=== PATIENT | male | born 1940 | race Caucasian/White ===

== ENCOUNTER 2016-10-15 09:20 | Day surgery (SDC) | payer MEDICARE ==
[2016-10-14 09:35] VITALS: BMI 26.9
[~2016-10-15 09:20] MED LIST: LACTATED RINGERS 1,000 ML IV SCH
[2016-10-15 09:56] VITALS: TEMP 97.6
[2016-10-15 09:57] LABS: Glucose,Whole Blood 96 mg/dL (75-99)
[2016-10-15] MEDS ORDERED: PROPOFOL 10 MG/ML 20 ML VIAL IV ONE (10:41)
--- NOTE | 2016-10-15 11:23 | P.PCN ---
Date of Procedure: 10/15/16 Preoperative Diagnosis: Postoperative Diagnosis: Procedure(s) Performed: BRIEF HISTORY: Patient is a 76-year-old pleasant white male, scheduled for an elective colonoscopy as a part of prior history of colon polyps. His last colonoscopy was in 2010. PROCEDURE PERFORMED: Colonoscopy with snare polypectomy. PREOPERATIVE DIAGNOSIS: History of colon polyps. IV sedation per Anesthesia. PROCEDURE: After informed consent was obtained, the patient, was brought into the endoscopy unit. IV sedation was administered by Anesthesia under continuous monitoring. Digital rectal examination was normal. Initially the Olympus CF- 160 flexible video colonoscope was then inserted in the rectum, gradually advanced into the cecum without any difficulty. Careful examination was performed as the scope was gradually being withdrawn. Ileocecal valve and the appendiceal orifice were visualized and appeared normal. Prep was excellent. In the base of the cecum there was a 1 cm flat polyp removed by snare polypectomy. In the transverse colon there was another 1 cm broad-based polyp removed by snare polypectomy. The rest of the mucosa of the cecum, ascending colon, transverse colon, descending colon, sigmoid colon, and rectum appeared normal. Scattered sigmoid diverticulosis seen. Retroflexion was performed in the rectum and no lesions were seen. The patient tolerated the procedure well. IMPRESSION: 1 m flat cecal polyp status post snare polypectomy. 1 m broad-based transverse colon polyp status post snare polypectomy. Scattered sigmoid diverticulosis. RECOMMENDATIONS: Findings of this examination were discussed with the patient as well as his family. He was advised to follow with the biopsy results. If the biopsy shows a tubular adenoma he can have a repeat colonoscopy in 3-5 years.. Implants: Indications for Procedure: Operative Findings: Description of Procedure:
[2016-10-15 11:30] VITALS: BP 120/68; PULSE 55; RESP 18
== END 2016-10-15 11:44 | disposition home or self-care (01) ==
LOC: ORWHC2ENDO 09:20
PROVIDERS: ATTEND Internal Medicine Gastroenterology
DX: Z12.11 Encounter for screening for malignant neoplasm of colon (principal); D12.0 Benign neoplasm of cecum; D12.2 Benign neoplasm of ascending colon; K57.30 Diverticulosis of large intestine without perforation or abscess without bleeding; Z86.010 Personal history of colon polyps; G47.33 Obstructive sleep apnea (adult) (pediatric); Z79.82 Long term (current) use of aspirin; Z79.52 Long term (current) use of systemic steroids; Z79.899 Other long term (current) drug therapy
CPT/HCPCS: 88305; 45385; J2704

== ENCOUNTER → 2017-01-20 | Outpatient (CLI) | payer MEDICARE ==
--- NOTE | 2017-01-20 12:45 | MR ---
EXAMINATION TYPE: MR shoulder LT wo con DATE OF EXAM: 01/20/2017 COMPARISON: NONE HISTORY: Left shoulder pain TECHNIQUE: Multiplanar, multisequence imaging of the left shoulder is performed without contrast. FINDINGS: Exam limited by severe motion artifact. Rotator Cuff: There is an 8 mm through thickness tear involving the distal margin anterior fibers sup raspinatus tendon. There is edema at the musculotendinous junction of the infraspinatus tendon and th ickening of the conjoined portion of the tendon and a large through thickness tear measuring approxim ately 11 mm near the insertion. Suspected partial through thickness tear insertion of the subscapular is tendon. Acromioclavicular Joint: Hypertrophic change of the AC joint results in impingement of the rotator cu ff. Glenohumeral Joint: There is narrowing of the glenohumeral joint. Significant narrowing with near com plete loss of joint space. There is partial subluxation of the humeral head. Small amount of fluid in the joint space. Labrum: Degenerative labral tears are noted secondary to severe arthropathy. Biceps Tendon: Increased fluid surrounding the biceps tendon suggesting bicipital tendinosis biceps a nchor and intracapsular portion of the tendon intact. Bone marrow signal: Cystic changes and edema involving the head of the humerus likely post arthritic and reactive. IMPRESSION: 1. Severe arthropathy of the glenohumeral joint with subluxation posteriorly of the humeral head. Deg enerative labral tears are noted and there is near complete loss of joint space. 2. Partial through thickness tears involving the infraspinatus and supraspinatus tendons as discussed above. Additionally, edematous change at the musculotendinous junction of the infraspinatus tendon a nd muscle noted as discussed above. 3. Partial tear insertion subscapularis tendon. 4. Impingement secondary to AC joint arthropathy.
== END | disposition home or self-care (01) ==
LOC: RADMRIMAIN 11:31
PROVIDERS: ATTEND Orthopaedic Surgery
DX: M75.112 Incomplete rotator cuff tear or rupture of left shoulder, not specified as traumatic (principal); M12.812 Other specific arthropathies, not elsewhere classified, left shoulder; S43.002A Unspecified subluxation of left shoulder joint, initial encounter

== ENCOUNTER → 2017-03-02 | Outpatient (CLI) | payer MEDICARE ==
[2017-03-02 10:15] LABS: INR 1.2 (<1.2); Prothrombin Time 12.3 sec (9.0-12.0)
--- NOTE | 2017-03-02 10:29 | XR ---
EXAMINATION TYPE: XR chest 2V DATE OF EXAM: 03/02/2017 COMPARISON: NONE HISTORY: Preoperative clearance. TECHNIQUE: Frontal and lateral views of the chest are obtained. FINDINGS: There is no focal air space opacity, pleural effusion, or pneumothorax seen. The cardiac silhouette size is within normal limits. The osseous structures are intact. Minimal degenerative ch anges of the thoracic spine are noted. Prior rotator cuff surgery on the right with anchors and subch ondral cystic change are seen. IMPRESSION: No acute cardiopulmonary process.
[2017-03-02 10:34] LABS: ALT 25 U/L (21-72); AST 25 U/L (17-59); Alkaline Phosphatase 56 U/L (38-126); Anion Gap 11 mmol/L; Blood Urea Nitrogen 18 mg/dL (9-20); Carbon Dioxide 22 mmol/L (22-30); Chloride 108 mmol/L (98-107); Glucose 104 mg/dL (74-99); Non-African American GFR(MDRD) >60 (>60 ml/min/1.73 sqM); Potassium 4.7 mmol/L (3.5-5.1); Sodium 141 mmol/L (137-145); Total Bilirubin 1.6 mg/dL (0.2-1.3); Total Protein 6.9 g/dL (6.3-8.2)
[2017-03-02 10:47] LABS: Basophils % (A) 1 %; CHCM 33.5; Eosinophils # (A) 0.3 k/uL (0-0.7); Eosinophils % (A) 4 %; HCT 49.9 % (39.0-53.0); HDW 2.51; Luc # (Auto) 0.21; Luc % (Auto) 3; Lymphocytes # (A) 1.8 k/uL (1.0-4.8); Lymphocytes % (A) 25 %; MCH 30.9 pg (25.0-35.0); MCHC 32.1 g/dL (31.0-37.0); MCV 96.1 fL (80.0-100.0); Mean Platelet Volume 7.1; Monocytes # (A) 0.4 k/uL (0-1.0); Monocytes % (A) 6 %; Neutrophils # (A) 4.3 k/uL (1.3-7.7); Neutrophils % (A) 61 %; RBC 5.19 m/uL (4.30-5.90); RDW 12.7 % (11.5-15.5); WBC 7.1 k/uL (3.8-10.6); WBC (Perox) 7.09
== END | disposition home or self-care (01) ==
LOC: LABWHC1 09:28
PROVIDERS: ATTEND Internal Medicine Geriatric Medicine
DX: Z01.818 Encounter for other preprocedural examination (principal); Z01.812 Encounter for preprocedural laboratory examination
CPT/HCPCS: 36415; 71020; 80053; 85025; 85610; 87070

== ENCOUNTER 2017-03-29 06:32 | Inpatient (IN) | payer MEDICARE ==
[2017-03-28 09:03] VITALS: BMI 27.1
--- NOTE | 2017-03-28 10:19 | HP ---
HISTORY AND PHYSICAL CHIEF COMPLAINT: Left shoulder pain. HISTORY OF PRESENT ILLNESS: The patient is a 76-year-old retired left-hand dominant gentleman who presents with left shoulder pain for the past several years. It has worsened recently. He is having pain with overhead use and at night. He has tried medications and injections with only partial temporary relief. He notes the pain does limit his normal function and activities. PAST MEDICAL HISTORY: Significant for reflux disease, sleep apnea, prostatic hypertrophy, hypothyroidism. PAST SURGICAL HISTORY: Significant for previous knee and shoulder surgery. CURRENT MEDICATIONS: Aspirin and terazosin. ALLERGY: He notes sensitivity to CODEINE, however, no rosita drug allergies. FAMILY HISTORY: Significant for cancer. SOCIAL HISTORY: Negative for current tobacco or alcohol use. REVIEW OF SYSTEMS: Sixteen point review of systems otherwise reviewed and is noncontributory. PHYSICAL EXAMINATION: On examination, the patient is approximately 5 feet 9 inches, 187 pounds of mesomorphic habitus. HEENT exam is nonfocal. Neck is supple. He has active range of motion of the left shoulder. Forward elevation 135 degrees, external rotation with arm at side 50 degrees, internal rotation to T12. He is tender about the anterior glenohumeral joint. Motor strength is 5/5 for external rotation with arm at side and 5 minus/5 for abduction. Impingement, Neer , and Speed tests are positive. His distal neurovascular exam otherwise appears intact in the left upper extremity. X-rays to include AP and axillary lateral views of the left shoulder obtained in the office show severe glenohumeral joint osteoarthrosis. Previous MRI report revealed a small rotator cuff tear. IMPRESSION: Left severe glenohumeral joint osteoarthrosis. RECOMMENDATIONS: I talked to the patient and his at length regarding his treatment options. At this point, he is significantly limited because of pain related to his osteoarthrosis despite conservative measures. After thorough discussion, he opts to proceed with surgery. We will plan to proceed with left total shoulder arthroplasty versus a reverse total shoulder arthroplasty depending on his rotator cuff integrity. We will likely institute DVT prophylaxis postoperatively. The patient underwent preoperative medical evaluation by Dr. Talbot. KWAN / ZAHIRA: [id number] /
[~2017-03-29 06:32] MED LIST changes: +ACETAMINOPHEN TAB 500 MG TAB PO ONE; -LACTATED RINGERS 1,000 ML IV SCH; +MELOXICAM 7.5 MG TAB PO ONE; +MIDAZOLAM 2 MG/2 ML VIAL IV PRN; +TRANEXAMIC ACID 1,000 MG in SODIUM CHLORIDE 0.9% 100 ML IVPB ONE; +ceFAZolin IN SWFI 2 GM/20 ML SYRINGE IVP ONE; +fentaNYL (PF) 50 MCG/ML 2 ML AMP IV PRN
[2017-03-29] MEDS ORDERED: ONDANSETRON 4 MG/2 ML VIAL IVP ONE (07:15)
[2017-03-29] MEDS: LACTATED RINGERS 1,000 ML IV SCH ×2 (07:15→16:58)
[2017-03-29] MEDS ORDERED: LIDOCAINE 1% 20 ML VIAL (10MG/ML) FOR IV START INTRADERMA ONE (07:15)
[2017-03-29] MEDS ORDERED: DEXAMETHASONE SOD PHOSPHATE 10 MG/ML 1 ML VIAL IV ONE (07:15)
[2017-03-29] MEDS ORDERED: MIDAZOLAM 2 MG/2 ML VIAL IV ONE ×2 (07:30→07:54)
[2017-03-29] MEDS ORDERED: fentaNYL (PF) 50 MCG/ML 2 ML AMP IV ONE (07:30)
[2017-03-29 07:50] VITALS: RESP 16
[2017-03-29] MEDS ORDERED: SUCCINYLCHOLINE CHLORIDE 100 MG/5 ML SYR IV ONE (07:55)
[2017-03-29] MEDS ORDERED: fentaNYL (PF) 50 MCG/ML 2 ML AMP ONE (07:55)
[2017-03-29] MEDS ORDERED: LIDOCAINE 1% INJ 10MG/ML (20 ML MDV) ONE (07:55)
[2017-03-29] MEDS ORDERED: PROPOFOL 10 MG/ML 20 ML VIAL IV ONE (07:55)
[2017-03-29] MEDS ORDERED: PHENYLEPHRINE-0.9% NACL SYG 1 MG/10 ML SYRINGE ONE (07:55)
[2017-03-29] MEDS ORDERED: SODIUM CHLORIDE 0.9% 100 ML BAG ONE (07:55)
[2017-03-29] MEDS ORDERED: TRANEXAMIC ACID 1,000 MG/10 ML VIAL ONE (07:55)
[2017-03-29] MEDS ORDERED: SODIUM CHLORIDE 0.9% 50 ML with ceFAZolin 2 GM IV ONE ×2 (07:58)
--- NOTE | 2017-03-29 08:34 | P.ONQ ---
Anesthesiology Proc Note - PNB - Peripheral Nerve Block Performed Left Interscalene Single Time Out Performed: Yes Indication: Acute Post-Operative Pain, Analgesia Specifically requested for management of pain by : Riki Wright Sedation Type: Sedate with meaningful contact maintained Preparation: Sterile Prep Position: Supine Catheter: None Needle Types: Other (see comment) (Pajunk) Needle Size: 50mm (2") Needle Gauge: 21 Technique: Ultrasound Injectate: Other (see comment) (12.5cc 0.5% ropivicaine + 12.5cc 2% lidocaine) Adjunct: Epinephrine (see comment for dilution ratio) (1:200,000) Blood Aspirated: No Pain Paresthesia on Injection Noted: No Resistance on Injection: Normal Events: Uneventful and Well Tolerated
[2017-03-29] MEDS ORDERED: LACTATED RINGERS 1,000 ML IV ONE (10:06)
[2017-03-29] MEDS ORDERED: SENNOSIDES-DOCUSATE SODIUM 1 EACH TAB PO PRN (10:17)
[2017-03-29] MEDS ORDERED: ONDANSETRON 4 MG/2 ML VIAL IVP PRN (10:17)
[2017-03-29] MEDS ORDERED: HYDROcodone/APAP 5-325MG 1 EACH TAB PO PRN (10:17)
[2017-03-29] MEDS ORDERED: HYDROmorphone 1 MG/ML 1 ML SYRINGE IVP PRN ×2 (10:17)
--- NOTE | 2017-03-29 10:32 | P.OP ---
Date of Procedure: 03/29/17 Preoperative Diagnosis: Left severe glenohumeral joint osteoarthrosis-primary Postoperative Diagnosis: Same Procedure(s) Performed: Left total shoulder arthroplasty Implants: [employer] size 12 press-fit humeral stem, 52 x 21 mm eccentric humeral head, 48 mm pegged cemented glenoid component. Anesthesia: maris HICKS Surgeon: Riki Wright Afternoon Nanny #1: Carlos Yu Estimated Blood Loss (ml): 250 Pathology: other (Humeral head) Condition: stable Disposition: PACU Indications for Procedure: The patient's a 76-year-old gentleman who presents with progressive left shoulder pain secondary to osteoarthrosis despite conservative measures. A discussion of the risks and benefits of operative intervention versus continued conservative measures was made with the patient. He opted to proceed with surgery. Operative risks to include infection, neurovascular injury, component loosening, dislocation, and possible need for subsequent procedures was discussed. Informed consent was obtained. Operative Findings: As below Description of Procedure: The patient was brought to the operating room and after induction of general anesthesia was placed in the beachchair position. The bony prominences were appropriately padded. The left upper extremity was prepped and draped in normal fashion. The bony outlines the acromion, distal clavicle, and coracoid process were outlined with a skin marker. A deltopectoral incision was made just lateral to the coracoid process extending approximately 12 cm. The skin was incised sharply. Subcu tissues were divided bluntly. Electrocautery was used for hemostasis. The deltopectoral interval was identified and the cephalic vein gently retracted laterally with the deltoid. Blunt dissection was performed. Subdeltoid adhesions were bluntly dissected. The upper one third of the pectoralis was released with electrocautery to help facilitate exposure. The clavipectoral fascia was opened and the conjoined tendon gently retracted medially. A portion of the upper coracoacromial ligament was transected with electrocautery. The biceps was identified in the bicipital groove on removed. The rotator interval was opened. The rotator cuff appeared to be intact. The biceps was tenotomized and lateral retract distally. A lesser tuberosity osteotomy was performed with a sagittal saw and tagged with a suture. The capsule was released directly off the humeral neck. The humeral head was then fully exposed. The shoulder was just gently dislocated. A starting hole was made in line with the humeral shaft just medial to the greater tuberosity. Sequential canal reaming is performed by hand up to size 12. There was good distal fit. The cutting guide was then placed planning on 30 of retroversion. I planned on the cut exiting laterally at the rotator insertion. The cutting block was pinned in place the humeral head cut was made. The head was then removed and sized at 52 mm x 21 mm. Attention was then paid towards preparing the glenoid. A posterior retractor is placed along with a anterior glenoid retractor. The labrum was released from the 6:00 to 12 o'clock position anteriorly. The biceps was released from the superior labrum. The posterior labrum was also elevated. I had good glenoid exposure at this point. The glenoid sized most appropriate 48 mm. The alignment guide was placed and the threaded pin placed into the center of the glenoid from the anterior to posterior and superior to inferior aspect. The glenoid was then reamed down to bleeding bony surface. The central peg hole was drilled. The peripheral peg holes were drilled with the appropriate guide. There was bony containment of all peg holes. The trial 48 mm peg glenoid was placed and was fully seated. There is good anterior to posterior and superior to inferior fit. The trial component was then removed. The peripheral peg holes were then cemented and pressurized. Excess cement was removed. I did bone graft the central peg portion of the glenoid component. The glenoid was then inserted and was fully seated. After the cement had sufficiently hardened, attention was then paid towards preparing the proximal humerus. The appropriate broach was inserted in 30 of retroversion and was fully seated. There was good rotational stability. The trial 52 x 21 mm eccentric head was placed and appropriately positioned for humeral height. The shoulder was gently reduced. It was taken through range of motion. I was stable in flexion and extension with internal and external rotation. I felt there was adequate soft tissue tension. The shoulder was gently dislocated. The trial components were then removed. #2 Ethibond was then placed lateral to the bicipital groove for reattachment of the lesser tuberosity. The humeral stem was inserted again at 30 of retroversion and was fully seated. Again there was good rotational stability. The eccentric head was placed and appropriately positioned for humeral height. It was gently impacted. The shoulder was again gently reduced. Again it was felt to be stable in flexion and extension with internal and external rotation. Pulsatile lavage was utilized. The rotator interval was closed with #2 Ethibond suture. The lesser tuberosity was reattached with the previously placed #2 Ethibond suture. The deltopectoral interval was closed with interrupted 2-0 Vicryl sutures. Subcutaneous tissues reapproximated interrupted 2-0 Vicryl sutures. The skin was reapproximated with 3-0 subcuticular Prolene suture. Steri-Strips were applied. A sterile dressing was applied in addition to a sling. The patient was awoken from general anesthesia and transferred to recovery room in good condition. Blood loss was estimated 250 mL. No complications were incurred. Sponge and needle counts were correct at the end the case.
--- NOTE | 2017-03-29 10:49 | XR ---
EXAMINATION TYPE: XR shoulder limited LT DATE OF EXAM: 03/29/2017 CLINICAL HISTORY: Left shoulder replacement surgery TECHNIQUE: Single frontal view of left shoulder is obtained. COMPARISON: MRI left shoulder January 20, 2017.. FINDINGS: Metallic hardware from left shoulder arthroplasty is felt satisfactory in position. There i s evidence of recent surgery with adjacent subcutaneous gas and surgical staple overlying central gle noid. IMPRESSION: Metallic hardware from left shoulder surgery is satisfactory in position.
--- NOTE | 2017-03-29 14:17 | P.CONS ---
History of Present Illness - Reason for Consult Consult date: 03/29/17 Medical management - History of Present Illness This is a 76-year-old male patient of Dr. Talbot with past medical history for generalized osteoarthritis, benign prostatic hypertrophy, skin cancer, hepatitis A many years ago, obstructive sleep apnea. Patient has been admitted to the hospital on the care of Dr. Wright status post left total shoulder arthroplasty done today. Patient states his pain is controlled. He does have Jones catheter in place. Patient has history of benign prostatic hypertrophy and did have problems with urinary retention when he had his last shoulder surgery. Hytrin will be resumed. Jones to be removed in the morning. Patient denies any shortness of breath, cough, nausea or vomiting. Blood pressures currently stable. Review of Systems All systems: negative Constitutional: Denies chills, Denies fever Eyes: denies blurred vision, denies pain Ears, nose, mouth and throat: Denies headache, Denies sore throat Cardiovascular: Denies chest pain, Denies decreased exercise tolerance, Denies dyspnea on exertion, Denies edema, Denies leg edema, Denies lightheadedness, Denies shortness of breath, Denies syncope Respiratory: Denies cough, Denies cough with sputum, Denies dyspnea, Denies excessive sputum, Denies hemoptysis, Denies wheezing Gastrointestinal: Denies abdominal pain, Denies diarrhea, Denies nausea, Denies vomiting Genitourinary: Denies dysuria Musculoskeletal: Denies myalgias Integumentary: Denies pruritus, Denies rash Neurological: Denies numbness, Denies weakness Psychiatric: Denies anxiety, Denies depression Endocrine: Denies fatigue, Denies weight change Past Medical History Past Medical History: Cancer, Liver Disease, Osteoarthritis (OA), Prostate Disorder, Sleep Apnea/CPAP/BIPAP Additional Past Medical History / Comment(s): enlarged prostate, hx. skin cancer , hx. hepatitis A in college 56 yrs. ago, uses a bite splint for sleep apnea, History of Any Multi-Drug Resistant Organisms: None Reported Past Surgical History: Hernia Repair, Orthopedic Surgery Additional Past Surgical History / Comment(s): rotator cuff repair right, arthroscopies both knees,TLS 03/29/17, left shoulder total arthroplasty Past Anesthesia/Blood Transfusion Reactions: Previous Problems w/ Anesthesia Additional Past Anesthesia/Blood Transfusion Reaction / Comm: "hard to wake up" Past Psychological History: No Psychological Hx Reported Smoking Status: Never smoker Past Alcohol Use History: Occasional Additional Past Alcohol Use History / Comment(s): Patient lives at home with his . He states he is a lifelong nonsmoker. No illicit drug use. He does drink a glass of wine occasionally area last intake was 3 days ago. Past Drug Use History: None Reported - Past Family History Mother Family Medical History: No Reported History Additional Family Medical History / Comment(s): Mother had no major medical problems. Father Additional Family Medical History / Comment(s): Father had no major medical problems. Daughter(s) Additional Family Medical History / Comment(s): Patient has 2 children with no major medical problems. Medications and Allergies Home Medications Medication Instructions Recorded Confirmed Type Aspirin [Adult Low Dose Aspirin EC] 81 mg PO DAILY 10/14/16 03/29/17 History Cinnamon Bark [Cinnamon] 500 mg PO DAILY 10/14/16 03/29/17 History Multivitamin [Multiple Vitamins] 1 tab PO DAILY 10/14/16 03/29/17 History Glucosam/Harish-Msm1/C/Abhijeet/Bosw 1 tab PO DAILY 03/28/17 03/29/17 History [Glucosamine-Chondroitin Tablet] Sildenafil Citrate [Sildenafil] 20 mg PO DIRECTED PRN 03/28/17 03/29/17 History Terazosin [Hytrin] 5 mg PO HS 03/28/17 03/29/17 History Allergies Allergy/AdvReac Type Severity Reaction Status Date / Time codeine AdvReac Rash/Hives Verified 03/29/17 12:27 Physical Exam Vitals: Vital Signs Temp Pulse Pulse Resp BP BP Pulse Ox 03/29/17 11:00 88 16 114/53 96 03/29/17 10:45 87 16 120/56 95 03/29/17 10:30 89 16 123/61 95 03/29/17 10:18 98.4 F 87 16 112/59 96 03/29/17 07:45 74 16 108/54 94 L 03/29/17 07:25 98.0 F 72 16 122/67 97 Intake and Output 03/28/17 03/29/17 03/29/17 22:59 06:59 14:59 Intake Total 1320 Output Total 450 Balance 870 Intake: IV 1320 Output: Urine 200 Estimated Blood Loss 250 Gen: This is a 76-year-old male. He is seen sitting up in bed appears to be comfortable and in no acute distress. HEENT: Head is atraumatic, normocephalic. Pupils equal, round. Sclerae is anicteric. NECK: Supple. No JVD. No lymphadenopathy. No thyromegaly. LUNGS: Clear to auscultation. No wheezes or rhonchi. No intercostal retractions. HEART: Regular rate and rhythm. No murmur. ABDOMEN: Soft. Bowel sounds are present. No masses. No tenderness. EXTREMITIES: No pedal edema. No calf tenderness. Dorsalis pedis +2 bilaterally. To the left shoulder, patient has a large dressing and sling in place. NEUROLOGICAL: Patient is awake, alert and oriented x3. Cranial nerves 2 through 12 are grossly intact. Assessment and Plan Plan: 1. Osteoarthritis left shoulder status post arthroplasty. Continue pain management, local wound care, PT, OT per orthopedics. Incentive spirometry to reduce incidence of atelectasis and hospital-acquired pneumonia. Jones catheter to be removed in the morning. 2. Benign prostatic hypertrophy with history of urinary retention. Patient will be resumed on Hytrin. Once Jones catheter is removed, monitor for urinary retention. Patient may require straight cath. 3. Obstructive sleep apnea, stable. 4. History of skin cancer, stable. Discharge plan: Return home Impression and plan of care have been directed as dictated by the signing physician. Lauryn Pineda nurse practitioner acting as scribe for signing physician.
[2017-03-29] MEDS: ceFAZolin IN SWFI 2 GM/20 ML SYRINGE IVP SCH (17:06)
[2017-03-29] MEDS: HYDROcodone/APAP 5-325MG 1 EACH TAB PO PRN ×2 (17:06→22:40)
[2017-03-29] MEDS ORDERED: DOXAZOSIN 4 MG TAB PO SCH (21:00)
[2017-03-29 22:20] VITALS: BP 112/56; PULSE 76; TEMP 98
[2017-03-30] MEDS: ceFAZolin IN SWFI 2 GM/20 ML SYRINGE IVP SCH (04:59)
[2017-03-30] MEDS: LACTATED RINGERS 1,000 ML IV SCH (05:00)
[2017-03-30 06:37] LABS: Basophils % (A) 0 %; CH 31.7; CHCM 33.2; Eosinophils # (A) 0.2 k/uL (0-0.7); Eosinophils % (A) 1 %; HCT 40.8 % (39.0-53.0); HDW 2.47; HGB 13.3 gm/dL (13.0-17.5); Luc # (Auto) 0.22; Luc % (Auto) 2; Lymphocytes # (A) 1.6 k/uL (1.0-4.8); Lymphocytes % (A) 12 %; MCH 31.2 pg (25.0-35.0); MCHC 32.6 g/dL (31.0-37.0); MCV 95.9 fL (80.0-100.0); Mean Platelet Volume 7.8; Monocytes # (A) 0.8 k/uL (0-1.0); Monocytes % (A) 6 %; Neutrophils # (A) 10.6 k/uL (1.3-7.7); Neutrophils % (A) 80 %; RBC 4.25 m/uL (4.30-5.90); RDW 12.9 % (11.5-15.5); WBC 13.3 k/uL (3.8-10.6); WBC (Perox) 14.05
[2017-03-30] MEDS: HYDROcodone/APAP 5-325MG 1 EACH TAB PO PRN ×2 (08:04→14:14)
[2017-03-30] MEDS ORDERED: ASPIRIN 81 MG PO SCH (09:00)
[2017-03-30] MEDS ORDERED: ASPIRIN 325 MG TAB PO SCH (09:00)
[2017-03-30] MEDS ORDERED: ENOXAPARIN 30 MG/0.3 ML SYRINGE SQ SCH (09:00)
--- NOTE | 2017-03-30 12:40 | P.PN ---
Subjective Progress Note Date: 03/30/17 Principal diagnosis: Status post left total shoulder arthroplasty Patient seen today resting in his hospital bed, he appears comfortable. His pain is well-controlled. He denies any chest pain, lightheadedness, shortness of breath, nausea or vomiting. Objective - Vital Signs Vital signs: Vital Signs Temp 98.0 F 03/29/17 20:00 Pulse 76 03/29/17 20:00 Resp 16 03/29/17 20:00 BP 112/56 03/29/17 20:00 Pulse Ox 94 L 03/29/17 20:00 Intake & Output 03/29/17 03/30/17 03/30/17 18:59 06:59 18:59 Intake Total 1740 180 480 Output Total 450 Balance 1290 180 480 Intake: IV 1560 180 Lactated Ringers 1,000 ml 240 180 @ 60 mls/hr IV .[id number] TOVA Rx#:[id number] Oral 180 480 Output: Urine 200 Estimated Blood Loss 250 Other: Voiding Method Indwelling Catheter Indwelling Catheter - Exam Left upper extremity: The incision is clean, dry, and intact. There is some soft tissue swelling and ecchymosis noted on the medial aspect of the arm. She is able to wiggle all the fingers, flexion and extension and the wrist are intact. Sensory exam to light touch the extremity is intact. His radial pulses 2+. - Labs CBC & Chem 7: 03/30/17 06:02 Labs: Abnormal Lab Results - Last 24 Hours (Table) 03/30/17 Range/Units 06:02 WBC 13.3 H (3.8-10.6) k/uL RBC 4.25 L (4.30-5.90) m/uL Neutrophils # 10.6 H (1.3-7.7) k/uL Assessment and Plan Plan: Assessment: 1. Postop day #1 status post left total shoulder arthroplasty Plan: 1. Pain control, we'll discharge home on oral medications 2. GI and DVT prophylaxis, we'll discharge home on aspirin 325 mg twice a day 3. Pendular exercises daily 4. Wound care instructions were discussed with patient 5. Medical recommendations 6. Discharge planning: Patient will be discharged home today Time with Patient: Less than 30
--- NOTE | 2017-03-30 12:43 | P.DS ---
Providers Date of admission: 03/29/17 06:32 Expected date of discharge: 03/30/17 Attending physician: Riki Wright Primary care physician: [facility] Course: Date of admission: 03/29/2017 Date of discharge: 03/30/2017 Admission diagnosis: Status post left total shoulder arthroplasty Discharge diagnosis: Same Attending physician: Dr. Wright Surgical procedures: Left total shoulder arthroplasty Brief history: Patient is a 76-year-old male with a history of progressive primary left shoulder osteoarthritis. At this point patient has failed conservative treatment measures and has opted to proceed with a elective left total shoulder arthroplasty. Hospital course: Details of patient's surgery can be found in operative report. Patient tolerated the procedure well and was subsequently transported to orthopedic floor. Patient's orthopeidc and medical care was provided daily. Patient had daily laboratory tests performed for evaluation of overall blood counts. Patient had daily physical therapy to include strengthening range of motion as well as education with walker ambulation. Patient was treated with aspirin for their postoperative DVT prophylaxis during their inpatient stay. Patient was noted to have a relatively uneventful postoperative course. Patient reported satisfactory pain control with oral pain medications by postoperative day 0. Patient showed satisfactory progress with physical therapy. Patient moved steadily through the program and had no difficulty meeting the goals by postoperative day 1. Given patient's otherwise satisfactory course and having met physical therapy goals, plan is to discharge patient home on postoperative day 1. Discharge condition/disposition: Patient will be discharged home in stable condition. Discharge medications: Instructions are given on resumption of patient's normal daily medications per primary care recommendation, in addition patient will be prescribed Randolph 5 mg/325 mg, aspirin 325 mg. Discharge instructions: 1. Wound care and infection precautions, keep incision dry and covered while showering, no lotions, creams, moisturizers. No soaking, tubs, pools, hottubs. Do not scrub over the incision. 2. Utilize arm sling, pendulum exercises 2-3 times a day 3. Ice and elevate when necessary. Do not exceed 20 minutes per hour with ice pack. 4. Utilize compression sleeve until seen at first follow up appointment. 5. Visiting nursing care. 6. Pain meds and anticoagulants per prescription. 7. Pain medication has potential to cause constipation. Increase oral fluid and fiber intake. Contact primary care provider if you have not had a bowel movement within 48 hours after discharge 8. No anti-inflammatory medication until discussed at first post operative visit, this including Motrin, Aleve, Mobic, Diclofenac. 9. Follow up in office at 2 weeks postop with Tello Yu PA-C 10. Follow up with your primary care doctor 7-10 days after discharge. 11. Contact [facility] with any questions, . Procedures: Left total shoulder arthroplasty Patient Condition at Discharge: Good Plan - Discharge Summary Discharge Rx Participant: Yes New Discharge Prescriptions: New Aspirin 325 mg PO BID #60 tab Hydrocodone/Acetaminophen [Randolph 5-325] 1 - 2 each PO Q6HR PRN #40 tab PRN Reason: Pain No Action Multivitamin [Multiple Vitamins] 1 tab PO DAILY Cinnamon Bark [Cinnamon] 500 mg PO DAILY Terazosin [Hytrin] 5 mg PO HS Sildenafil Citrate [Sildenafil] 20 mg PO DIRECTED PRN PRN Reason: erectile dysfunction Glucosam/Harish-Msm1/C/Abhijeet/Bosw [Glucosamine-Chondroitin Tablet] 1 tab PO DAILY Discharge Medication List Cinnamon Bark [Cinnamon] 500 mg PO DAILY 10/14/16 [History] Multivitamin [Multiple Vitamins] 1 tab PO DAILY 10/14/16 [History] Glucosam/Harish-Msm1/C/Abhijeet/Bosw [Glucosamine-Chondroitin Tablet] 1 tab PO DAILY 03/28/17 [History] Sildenafil Citrate [Sildenafil] 20 mg PO DIRECTED PRN 03/28/17 [History] Terazosin [Hytrin] 5 mg PO HS 03/28/17 [History] Aspirin 325 mg PO BID #60 tab 03/30/17 [Rx] Hydrocodone/Acetaminophen [Randolph 5-325] 1 - 2 each PO Q6HR PRN #40 tab 03/30/17 [Rx] Follow up Appointment(s)/Referral(s): Carlos Yu PAC [PHYSICIAN SENIOR CLINICAL DATA ANALYST] - 2 Weeks Activity/Diet/Wound Care/Special Instructions: Orthopedic Discharge Instructions: 1. Wound care and infection precautions, keep incision dry and covered while showering, no lotions, creams, moisturizers. No soaking, pools, hot tubs. Do not scrub over incision. 2. Utilize arm sling, pendulum exercises 2-3 times a day 3. Ice and elevate when necessary. Do not exceed 20 minutes per hour with ice pack. 4. Utilize compression sleeve until seen at first follow up appointment. 5. Visiting nursing care. 6. Pain meds and anticoagulants per prescription. 7 Pain medication has potential to cause constipation. Increase oral fluid and fiber intake. Contact primary care provider if you have not had a bowel movement within 48 hours after discharge. 8. No anti-inflammatory medication until discussed at first post operative visit, this including Motrin, Aleve, Mobic, Diclofenac. 9. Follow up in office at 2 weeks postop with Tello Yu PA-C 10. Follow up with your primary care doctor 7-10 days after discharge. 11. Contact [facility] with any questions, . Discharge Disposition: HOME WITH HOME HEALTH SERVICES
== END 2017-03-30 14:50 | disposition home or self-care (01) | DRG 483 ==
LOC: 2ORMAIN 06:32 → 3SUR 10:18
PROVIDERS: ADMIT Orthopaedic Surgery; ATTEND Orthopaedic Surgery
PROC: 0RRK0JZ Replacement of Left Shoulder Joint with Synthetic Substitute, Open Approach (ICD-10-PCS; principal; 2017-03-29 08:00)
DX: M19.012 Primary osteoarthritis, left shoulder (principal); E03.9 Hypothyroidism, unspecified; G47.33 Obstructive sleep apnea (adult) (pediatric); K21.9 Gastro-esophageal reflux disease without esophagitis; M81.0 Age-related osteoporosis without current pathological fracture; N40.0 Benign prostatic hyperplasia without lower urinary tract symptoms; E78.00 Pure hypercholesterolemia, unspecified; Z79.82 Long term (current) use of aspirin; Z79.899 Other long term (current) drug therapy; Z79.52 Long term (current) use of systemic steroids; Z85.828 Personal history of other malignant neoplasm of skin; Z88.5 Allergy status to narcotic agent; Z82.49 Family history of ischemic heart disease and other diseases of the circulatory system
CPT/HCPCS: 64415; 85025; 88300

== ENCOUNTER 2018-05-14 12:05 | Emergency (ER) | payer MEDICARE ==
[2018-05-14 12:17] VITALS: BP 155/73; PULSE 71; RESP 18
[2018-05-14] MEDS ORDERED: LORazepam 2 MG/ML INJ IV STA (12:58)
[2018-05-14] MEDS ORDERED: SODIUM CHLORIDE 0.9% 500 ML 500 ML IV STA (12:58)
[2018-05-14] MEDS ORDERED: ONDANSETRON 4 MG/2 ML VIAL IVP STA (12:58)
[2018-05-14] MEDS ORDERED: SODIUM CHLORIDE 0.9% 1,000 ML IV STA ×2 (12:58)
[2018-05-14] MEDS ORDERED: PANTOPRAZOLE 40 MG/10 ML VIAL IVP STA (12:58)
--- NOTE | 2018-05-14 13:30 | ED ---
Abdominal Pain HPI - General Chief Complaint: Abdominal Pain Stated Complaint: Stomach pain/vomiting Time Seen by Provider: 05/14/18 12:58 Source: patient, RN notes reviewed, old records reviewed Mode of arrival: ambulatory Limitations: no limitations - History of Present Illness Initial Comments: This is a 77-year-old male the ER for evasive persistent nausea vomiting and diarrhea. Abdominal pain and cramping. Symptoms began just prior to coming to the emergency room he woke up this morning. Symptoms of been persistent with increasing pain increasing vomiting. Patient denies fevers no prior history of similar complaint. States he has had stomach flu flu before but this does feel worse. No travel history no sick contacts. No trauma MD Complaint: abdominal pain -: hour(s) (6) Location: periumbilical, epigastric Radiation: none Migration to: no migration Severity: moderate Severity scale (1-10): 6 Consistency: constant Improves With: nothing Worsens With: vomiting, movement Associated Symptoms: nausea, vomiting - Related Data Home Medications Medication Instructions Recorded Confirmed Tamsulosin [Flomax] 0.4 mg PO BID 05/14/18 05/15/18 Triamterene/Hydrochlorothiazid 1 tab PO DAILY 05/14/18 05/15/18 [Triamterene-Hctz 37.5-25 mg Tb] Aspirin [Adult Low Dose Aspirin EC] 81 mg PO DAILY 05/15/18 05/15/18 Glucosam/Harish-Msm1/C/Abhijeet/Bosw 1 tab PO DAILY 05/15/18 05/15/18 [Glucosamine-Chondroitin Tablet] Multivitamins, Thera [Multivitamin 1 tab PO DAILY 05/15/18 05/15/18 (formulary)] Turmeric Root Extract [Turmeric] 500 mg PO DAILY 05/15/18 05/15/18 Previous Rx's Medication Instructions Recorded Ondansetron [Zofran] 4 mg PO Q8HR PRN #30 tab 05/14/18 HYDROcodone/APAP 5-325MG [[place] 1 tab PO Q6HR PRN #12 tab 05/15/18 5-325] Allergies Allergy/AdvReac Type Severity Reaction Status Date / Time codeine AdvReac Rash/Hives Verified 05/15/18 11:15 Review of Systems ROS Statement: Those systems with pertinent positive or pertinent negative responses have been documented in the HPI. ROS Other: All systems not noted in ROS Statement are negative. Past Medical History Past Medical History: Prostate Disorder, Sleep Apnea/CPAP/BIPAP Additional Past Medical History / Comment(s): enlarged prostate, hx. skin cancer , hx. hepatitis A in college 56 yrs. ago, uses a bite splint for sleep apnea, History of Any Multi-Drug Resistant Organisms: None Reported Past Surgical History: Hernia Repair, Joint Replacement, Orthopedic Surgery Additional Past Surgical History / Comment(s): rotator cuff repair right, arthroscopies both knees,TLS 03/29/17, left shoulder total arthroplasty Past Anesthesia/Blood Transfusion Reactions: Previous Problems w/ Anesthesia Additional Past Anesthesia/Blood Transfusion Reaction / Comment(s): "hard to wake up" Past Psychological History: No Psychological Hx Reported Smoking Status: Never smoker Past Alcohol Use History: Occasional Past Drug Use History: None Reported - Past Family History Mother Family Medical History: No Reported History Additional Family Medical History / Comment(s): Mother had no major medical problems. Father Additional Family Medical History / Comment(s): Father had no major medical problems. Daughter(s) Additional Family Medical History / Comment(s): Patient has 2 children with no major medical problems. General Exam Limitations: no limitations General appearance: alert, in no apparent distress, anxious Head exam: Present: atraumatic, normocephalic, normal inspection Eye exam: Present: normal appearance, PERRL, EOMI. Absent: scleral icterus, conjunctival injection, periorbital swelling ENT exam: Present: normal exam, mucous membranes moist Neck exam: Present: normal inspection. Absent: tenderness, meningismus, lymphadenopathy Respiratory exam: Present: normal lung sounds bilaterally. Absent: respiratory distress, wheezes, rales, rhonchi, stridor Cardiovascular Exam: Present: regular rate, normal rhythm, normal heart sounds. Absent: systolic murmur, diastolic murmur, rubs, gallop, clicks GI/Abdominal exam: Present: soft, normal bowel sounds. Absent: distended, tenderness, guarding, rebound, rigid Extremities exam: Present: normal inspection, full ROM, normal capillary refill. Absent: tenderness, pedal edema, joint swelling, calf tenderness Back exam: Present: normal inspection Neurological exam: Present: alert, oriented X3, CN II-XII intact Psychiatric exam: Present: normal affect, normal mood Skin exam: Present: warm, dry, intact, normal color. Absent: rash Course Vital Signs 05/14/18 05/14/18 12:12 16:10 Temperature 97.5 F L 97 F L Pulse Rate 71 Respiratory 18 Rate Blood Pressure 155/73 O2 Sat by Pulse 98 Oximetry - Reevaluation(s) Reevaluation #1: Medical record is reviewed and noncontributory Reevaluation #2: A she recheck at this time and his not having any pain no nausea or vomiting Medical Decision Making - Medical Decision Making 77 male the ER for evasive nausea vomiting abdominal pain and diarrhea. Patient is CT which is negative for acute disease, labwork is normal patient can be discharged home - Lab Data Result diagrams: 05/14/18 13:15 05/14/18 13:15 Lab Results 05/14/18 05/14/18 05/14/18 Range/Units 13:15 13:15 13:15 WBC 11.0 H (3.8-10.6) k/uL RBC 5.63 (4.30-5.90) m/uL Hgb 17.8 H (13.0-17.5) gm/dL Hct 51.5 (39.0-53.0) % MCV 91.4 (80.0-100.0) fL MCH 31.6 (25.0-35.0) pg MCHC 34.6 (31.0-37.0) g/dL RDW 13.0 (11.5-15.5) % Plt Count 201 (150-450) k/uL Neutrophils % 84 % Lymphocytes % 10 % Monocytes % 4 % Eosinophils % 1 % Basophils % 0 % Neutrophils # 9.2 H (1.3-7.7) k/uL Lymphocytes # 1.1 (1.0-4.8) k/uL Monocytes # 0.4 (0-1.0) k/uL Eosinophils # 0.1 (0-0.7) k/uL Basophils # 0.0 (0-0.2) k/uL Sodium 137 (137-145) mmol/L Potassium 4.3 (3.5-5.1) mmol/L Chloride 105 (98-107) mmol/L Carbon Dioxide 18 L (22-30) mmol/L Anion Gap 14 mmol/L BUN 26 H (9-20) mg/dL Creatinine 0.82 (0.66-1.25) mg/dL Est GFR (CKD-EPI)AfAm >90 (>60 ml/min/1.73 sqM) Est GFR (CKD-EPI)NonAf 86 (>60 ml/min/1.73 sqM) Glucose 162 H (74-99) mg/dL Lactic Ac Sepsis Rflx Plasma Lactic Acid Guillermo (0.7-2.0) mmol/L Calcium 9.8 (8.4-10.2) mg/dL Total Bilirubin 2.2 H (0.2-1.3) mg/dL AST 26 (17-59) U/L ALT 30 (21-72) U/L Alkaline Phosphatase 72 (38-126) U/L Total Creatine Kinase 64 (55-170) U/L CK-MB (CK-2) 1.9 (0.0-2.4) ng/mL CK-MB (CK-2) Rel Index 3.0 Troponin I <0.012 (0.000-0.034) ng/mL Total Protein 7.7 (6.3-8.2) g/dL Albumin 4.3 (3.5-5.0) g/dL Amylase 59 (30-110) U/L Lipase 30 (23-300) U/L Urine Color Urine Appearance (Clear) Urine pH (5.0-8.0) Ur Specific [place] (1.001-1.035) Urine Protein (Negative) Urine Glucose (UA) (Negative) Urine Ketones (Negative) Urine Blood (Negative) Urine Nitrite (Negative) Urine Bilirubin (Negative) Urine Urobilinogen (<2.0) mg/dL Ur Leukocyte Esterase (Negative) Urine RBC (0-5) /hpf Urine WBC (0-5) /hpf Urine Mucus (None) /hpf Blood Type Blood Type Recheck Antibody Screen Spec Expiration Date 05/14/18 05/14/18 05/14/18 Range/Units 13:15 13:15 13:15 WBC (3.8-10.6) k/uL RBC (4.30-5.90) m/uL Hgb (13.0-17.5) gm/dL Hct (39.0-53.0) % MCV (80.0-100.0) fL MCH (25.0-35.0) pg MCHC (31.0-37.0) g/dL RDW (11.5-15.5) % Plt Count (150-450) k/uL Neutrophils % % Lymphocytes % % Monocytes % % Eosinophils % % Basophils % % Neutrophils # (1.3-7.7) k/uL Lymphocytes # (1.0-4.8) k/uL Monocytes # (0-1.0) k/uL Eosinophils # (0-0.7) k/uL Basophils # (0-0.2) k/uL Sodium (137-145) mmol/L Potassium (3.5-5.1) mmol/L Chloride (98-107) mmol/L Carbon Dioxide (22-30) mmol/L Anion Gap mmol/L BUN (9-20) mg/dL Creatinine (0.66-1.25) mg/dL Est GFR (CKD-EPI)AfAm (>60 ml/min/1.73 sqM) Est GFR (CKD-EPI)NonAf (>60 ml/min/1.73 sqM) Glucose (74-99) mg/dL Lactic Ac Sepsis Rflx Plasma Lactic Acid Guillermo 2.7 H* (0.7-2.0) mmol/L Calcium (8.4-10.2) mg/dL Total Bilirubin (0.2-1.3) mg/dL AST (17-59) U/L ALT (21-72) U/L Alkaline Phosphatase (38-126) U/L Total Creatine Kinase (55-170) U/L CK-MB (CK-2) (0.0-2.4) ng/mL CK-MB (CK-2) Rel Index Troponin I (0.000-0.034) ng/mL Total Protein (6.3-8.2) g/dL Albumin (3.5-5.0) g/dL Amylase (30-110) U/L Lipase (23-300) U/L Urine Color Yellow Urine Appearance Clear (Clear) Urine pH 7.0 (5.0-8.0) Ur Specific [place] 1.023 (1.001-1.035) Urine Protein 1+ H (Negative) Urine Glucose (UA) Trace H (Negative) Urine Ketones 3+ H (Negative) Urine Blood Moderate H (Negative) Urine Nitrite Negative (Negative) Urine Bilirubin Negative (Negative) Urine Urobilinogen <2.0 (<2.0) mg/dL Ur Leukocyte Esterase Negative (Negative) Urine RBC 133 H (0-5) /hpf Urine WBC 1 (0-5) /hpf Urine Mucus Rare H (None) /hpf Blood Type O Positive Blood Type Recheck CABO Indicated Antibody Screen NEGATIVE Spec Expiration Date 05/17/2018 - 231405/14/18 Range/Units 13:56 WBC (3.8-10.6) k/uL RBC (4.30-5.90) m/uL Hgb (13.0-17.5) gm/dL Hct (39.0-53.0) % MCV (80.0-100.0) fL MCH (25.0-35.0) pg MCHC (31.0-37.0) g/dL RDW (11.5-15.5) % Plt Count (150-450) k/uL Neutrophils % % Lymphocytes % % Monocytes % % Eosinophils % % Basophils % % Neutrophils # (1.3-7.7) k/uL Lymphocytes # (1.0-4.8) k/uL Monocytes # (0-1.0) k/uL Eosinophils # (0-0.7) k/uL Basophils # (0-0.2) k/uL Sodium (137-145) mmol/L Potassium (3.5-5.1) mmol/L Chloride (98-107) mmol/L Carbon Dioxide (22-30) mmol/L Anion Gap mmol/L BUN (9-20) mg/dL Creatinine (0.66-1.25) mg/dL Est GFR (CKD-EPI)AfAm (>60 ml/min/1.73 sqM) Est GFR (CKD-EPI)NonAf (>60 ml/min/1.73 sqM) Glucose (74-99) mg/dL Lactic Ac Sepsis Rflx Y Plasma Lactic Acid Guillermo (0.7-2.0) mmol/L Calcium (8.4-10.2) mg/dL Total Bilirubin (0.2-1.3) mg/dL AST (17-59) U/L ALT (21-72) U/L Alkaline Phosphatase (38-126) U/L Total Creatine Kinase (55-170) U/L CK-MB (CK-2) (0.0-2.4) ng/mL CK-MB (CK-2) Rel Index Troponin I (0.000-0.034) ng/mL Total Protein (6.3-8.2) g/dL Albumin (3.5-5.0) g/dL Amylase (30-110) U/L Lipase (23-300) U/L Urine Color Urine Appearance (Clear) Urine pH (5.0-8.0) Ur Specific [place] (1.001-1.035) Urine Protein (Negative) Urine Glucose (UA) (Negative) Urine Ketones (Negative) Urine Blood (Negative) Urine Nitrite (Negative) Urine Bilirubin (Negative) Urine Urobilinogen (<2.0) mg/dL Ur Leukocyte Esterase (Negative) Urine RBC (0-5) /hpf Urine WBC (0-5) /hpf Urine Mucus (None) /hpf Blood Type Blood Type Recheck Antibody Screen Spec Expiration Date - EKG Data -: EKG Interpreted by Me (KG shows sinus rhythm rate of 73, IN 236, QRS 90, QTc 453) - Radiology Data Radiology results: report reviewed (CT chest abdomen pelvis negative for acute disease), image reviewed Disposition Clinical Impression: Gastroenteritis, Nausea & vomiting Disposition: HOME SELF-CARE Condition: Good Instructions: Gastritis (ED), Acute Nausea and Vomiting (ED) Prescriptions: Ondansetron [Zofran] 4 mg PO Q8HR PRN #30 tab PRN Reason: Nausea Is patient prescribed a controlled substance at d/c from ED?: No Referrals: Alexys Talbot MD [Primary Care Provider] - 1-2 days
[2018-05-14 13:40] LABS: Basophils % (A) 0 %; Eosinophils # (A) 0.1 k/uL (0-0.7); Eosinophils % (A) 1 %; HCT 51.5 % (39.0-53.0); HGB 17.8 gm/dL (13.0-17.5); Lymphocytes # (A) 1.1 k/uL (1.0-4.8); Lymphocytes % (A) 10 %; MCH 31.6 pg (25.0-35.0); MCHC 34.6 g/dL (31.0-37.0); MCV 91.4 fL (80.0-100.0); Mean Platelet Volume 7.9; Monocytes # (A) 0.4 k/uL (0-1.0); Monocytes % (A) 4 %; Neutrophils # (A) 9.2 k/uL (1.3-7.7); Neutrophils % (A) 84 %; Platelet Count 201 k/uL (150-450); RBC 5.63 m/uL (4.30-5.90)
[2018-05-14] MEDS ORDERED: MORPHINE SULFATE 4 MG/ML SYRINGE IVP PRN (13:47)
[2018-05-14 13:49] LABS: ALT 30 U/L (21-72); AST 26 U/L (17-59); Albumin 4.3 g/dL (3.5-5.0); Alkaline Phosphatase 72 U/L (38-126); Amylase 59 U/L (30-110); Anion Gap 14 mmol/L; Blood Urea Nitrogen 26 mg/dL (9-20); Calcium 9.8 mg/dL (8.4-10.2); Carbon Dioxide 18 mmol/L (22-30); Chloride 105 mmol/L (98-107); Glucose 162 mg/dL (74-99); Lipase 30 U/L (23-300); Potassium 4.3 mmol/L (3.5-5.1); Sodium 137 mmol/L (137-145); Total Bilirubin 2.2 mg/dL (0.2-1.3); Total Protein 7.7 g/dL (6.3-8.2)
[2018-05-14 14:05] LABS: Creatine Kinase 64 U/L (55-170)
[2018-05-14 14:07] LABS: Appearance,Urine Clear (Clear); Bilirubin,Urine Negative (Negative); Blood,Urine Moderate (Negative); Color,Urine Yellow; Glucose,Urine (UA) Trace (Negative); Ketones,Urine 3+ (Negative); Leukocyte Esterase,Urine Negative (Negative); Mucus,Urine Rare /hpf; Nitrite,Urine Negative (Negative); Protein,Urine 1+ (Negative); RBC,Urine 133 /hpf (0-5); Specific Gravity,Urine 1.023 (1.001-1.035); Urobilinogen,Urine <2.0 mg/dL (<2.0); WBC,Urine 1 /hpf (0-5)
[2018-05-14 14:18] LABS: Creatine Kinase MB 1.9 ng/mL (0.0-2.4); Troponin I <0.012 ng/mL (0.000-0.034)
--- NOTE | 2018-05-14 15:16 | CT ---
EXAMINATION TYPE: CT angio thor/abd pel aorta DATE OF EXAM: 05/14/2018 COMPARISON: None HISTORY: Pain, nausea, vomiting CT DLP: 1868.9 mGycm. Automated Exposure Control for Dose Reduction was Utilized. CONTRAST: CT scan of the thorax, abdomen and pelvis is performed without and with IV Contrast, patient injected with 100 mL of Isovue 370. FINDINGS: There are 3-D post processed images. Thoracic aorta is intact. There is no evidence of dissection. Abdominal aorta is intact without evide nce of dissection. There is atherosclerotic plaque formation in the thoracic and abdominal aorta. The re is patency of the celiac artery and superior mesenteric artery. There is patency of the renal britni gustabo. There is patency of the iliac and femoral arteries. I see no sign of hemodynamic stenosis. Heart is enlarged. There is minimal subsegmental atelectasis at the lung bases. There is no evidence of a pulmonary mass. I see no filling defects in the pulmonary arteries. The abdominal organs unremarkable. No free fluid. No ascites. Prostatic calcification. IMPRESSION: Mild atherosclerotic vascular disease. No evidence of aortic aneurysm or dissection. Sigmoid diverticulosis. Normal appendix.
[2018-05-14 16:11] VITALS: TEMP 97
== END 2018-05-14 16:10 | disposition home or self-care (01) ==
LOC: EC 12:05
DX: K52.9 Noninfective gastroenteritis and colitis, unspecified (principal); N42.9 Disorder of prostate, unspecified; G47.30 Sleep apnea, unspecified; Z88.5 Allergy status to narcotic agent; Z79.82 Long term (current) use of aspirin; Z79.899 Other long term (current) drug therapy; Z99.89 Dependence on other enabling machines and devices
CPT/HCPCS: 36415; 93005; 86900; 86901; 80053; 82150; 82550; 82553; 83605; 83690; 84484; 85025; 86850; 81001; 87086; 71275; 74174; 99285; 96374; 96375 ×3; 96361; J2060; J2270; J2405; C9113; Q9967

== ENCOUNTER 2018-05-15 09:29 | Emergency (ER) | payer MEDICARE ==
[2018-05-15] MEDS ORDERED: SODIUM CHLORIDE 0.9% 1,000 ML IV STA (10:04)
[2018-05-15] MEDS ORDERED: ONDANSETRON 4 MG/2 ML VIAL IVP STA (10:04)
[2018-05-15] MEDS ORDERED: SODIUM CHLORIDE 0.9% 500 ML 500 ML IV STA (10:04)
[2018-05-15] MEDS ORDERED: HYDROmorphone 1 MG/ML 1 ML SYRINGE IVP STA (10:05)
[2018-05-15] MEDS ORDERED: PANTOPRAZOLE 40 MG/10 ML VIAL IVP STA (10:11)
--- NOTE | 2018-05-15 10:13 | ED ---
General Adult HPI - General Chief complaint: Nausea/Vomiting/Diarrhea Stated complaint: Vomiting, poss flu Time Seen by Provider: 05/15/18 09:54 Source: patient, RN notes reviewed, old records reviewed Mode of arrival: ambulatory Limitations: no limitations - History of Present Illness Initial comments: 77 -year-old male presents for reevaluation of abdominal pain nausea vomiting. Patient was in the emergency department yesterday with symptoms of vomiting and epigastric abdominal pain. He was discharged home with improvement in his symptoms. 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 Patient does report several episodes of diarrhea while he has not had any diarrhea in the past 12 hours. He 's had one episode of vomiting. No blood noted in the vomit. Pain in the epigastrium is crampy, severe in nature. Pain is nonradiating. Denies chest pain or dyspnea. Denies lower abdominal pain. Denies fever or chills. Past medical history of hernia repair, no other abdominal surgeries. - Related Data Home Medications Medication Instructions Recorded Confirmed Tamsulosin [Flomax] 0.4 mg PO BID 05/14/18 05/15/18 Triamterene/Hydrochlorothiazid 1 tab PO DAILY 05/14/18 05/15/18 [Triamterene-Hctz 37.5-25 mg Tb] Aspirin [Adult Low Dose Aspirin EC] 81 mg PO DAILY 05/15/18 05/15/18 Glucosam/Harish-Msm1/C/Abhijeet/Bosw 1 tab PO DAILY 05/15/18 05/15/18 [Glucosamine-Chondroitin Tablet] Multivitamins, Thera [Multivitamin 1 tab PO DAILY 05/15/18 05/15/18 (formulary)] Turmeric Root Extract [Turmeric] 500 mg PO DAILY 05/15/18 05/15/18 Previous Rx's Medication Instructions Recorded Ondansetron [Zofran] 4 mg PO Q8HR PRN #30 tab 05/14/18 HYDROcodone/APAP 5-325MG [[place] 1 tab PO Q6HR PRN #12 tab 05/15/18 5-325] Allergies Allergy/AdvReac Type Severity Reaction Status Date / Time codeine AdvReac Rash/Hives Verified 05/15/18 11:15 Review of Systems ROS Statement: Those systems with pertinent positive or pertinent negative responses have been documented in the HPI. ROS Other: All systems not noted in ROS Statement are negative. Past Medical History Past Medical History: Prostate Disorder, Sleep Apnea/CPAP/BIPAP Additional Past Medical History / Comment(s): enlarged prostate, hx. skin cancer , hx. hepatitis A in college 56 yrs. ago, uses a bite splint for sleep apnea, History of Any Multi-Drug Resistant Organisms: None Reported Past Surgical History: Hernia Repair, Joint Replacement, Orthopedic Surgery Additional Past Surgical History / Comment(s): rotator cuff repair right, arthroscopies both knees,TLS 03/29/17, left shoulder total arthroplasty Past Anesthesia/Blood Transfusion Reactions: Previous Problems w/ Anesthesia Additional Past Anesthesia/Blood Transfusion Reaction / Comment(s): "hard to wake up" Past Psychological History: No Psychological Hx Reported Smoking Status: Never smoker Past Alcohol Use History: Occasional Past Drug Use History: None Reported - Past Family History Mother Family Medical History: No Reported History Additional Family Medical History / Comment(s): Mother had no major medical problems. Father Additional Family Medical History / Comment(s): Father had no major medical problems. Daughter(s) Additional Family Medical History / Comment(s): Patient has 2 children with no major medical problems. General Exam Limitations: no limitations General appearance: alert, in no apparent distress Head exam: Present: atraumatic, normocephalic Eye exam: Present: normal appearance, PERRL ENT exam: Present: normal exam Neck exam: Present: normal inspection. Absent: tenderness, meningismus Respiratory exam: Present: normal lung sounds bilaterally. Absent: respiratory distress, wheezes Cardiovascular Exam: Present: regular rate, normal rhythm GI/Abdominal exam: Present: soft, distended, tenderness (Minimal epigastric tenderness). Absent: guarding, rebound Extremities exam: Present: normal inspection, normal capillary refill. Absent: calf tenderness Back exam: Present: full ROM Neurological exam: Present: alert, oriented X3. Absent: motor sensory deficit Psychiatric exam: Present: normal affect, normal mood Skin exam: Present: warm, dry, intact. Absent: cyanosis, diaphoretic Course Vital Signs 05/15/18 05/15/18 09:31 10:37 Temperature 98.0 F Pulse Rate 58 L 61 Respiratory 20 18 Rate Blood Pressure 140/69 151/75 O2 Sat by Pulse 98 98 Oximetry EKG Findings - EKG Comments: EKG Findings:: EKG: Sinus bradycardia, first-degree AV block, left extremity deviation, left bundle branch block, rate of 59, W[place] interval 232, QRS duration 136, QTC 427, no ST segment changes, no significant change compared to EKG performed yesterday May 14. Medical Decision Making - Medical Decision Making 77-year-old male presenting with epigastric abdominal pain, and vomiting. Patient is re-presenting with similar symptoms after discharge yesterday. Symptoms were improved for approximately 12 hours after discharge. He began having increased abdominal pain, nausea and vomiting. Patient is well- appearing with stable vitals, mild epigastric tenderness. X-rays obtained, this is negative for obstruction, no dilated bowel no intraperitoneal free air. Patient has mildly elevated bili which is evaluated by ultrasound, this is negative for any acute findings. Patient normal electrolytes, stable hemoglobin , mild leukocytosis 12.5 may be reactive. Patient is reevaluated, completely asymptomatic no pain, no vomiting while in the emergency department. Patient is offered observation for continued symptomatic treatment, he declines, he wants to be discharged home. He is eager for discharge. He states he will monitor both his vomiting as well as bowel movements and flatus. He will watch for fever. He will represent with any worsening or changing symptoms. - Lab Data Result diagrams: 05/15/18 10:21 05/15/18 10:21 Lab Results 05/15/18 05/15/18 05/15/18 Range/Units 10:21 10:21 10:21 WBC 12.5 H (3.8-10.6) k/uL RBC 5.29 (4.30-5.90) m/uL Hgb 16.1 (13.0-17.5) gm/dL Hct 49.2 (39.0-53.0) % MCV 93.0 (80.0-100.0) fL MCH 30.5 (25.0-35.0) pg MCHC 32.8 (31.0-37.0) g/dL RDW 13.2 (11.5-15.5) % Plt Count 202 (150-450) k/uL Neutrophils % 84 % Lymphocytes % 8 % Monocytes % 5 % Eosinophils % 1 % Basophils % 0 % Neutrophils # 10.6 H (1.3-7.7) k/uL Lymphocytes # 1.0 (1.0-4.8) k/uL Monocytes # 0.6 (0-1.0) k/uL Eosinophils # 0.1 (0-0.7) k/uL Basophils # 0.0 (0-0.2) k/uL PT (9.0-12.0) sec INR (<1.2) APTT (22.0-30.0) sec Sodium 137 (137-145) mmol/L Potassium 4.1 (3.5-5.1) mmol/L Chloride 103 (98-107) mmol/L Carbon Dioxide 22 (22-30) mmol/L Anion Gap 12 mmol/L BUN 21 H (9-20) mg/dL Creatinine 0.83 (0.66-1.25) mg/dL Est GFR (CKD-EPI)AfAm >90 (>60 ml/min/1.73 sqM) Est GFR (CKD-EPI)NonAf 86 (>60 ml/min/1.73 sqM) Glucose 137 H (74-99) mg/dL Plasma Lactic Acid Guillermo 1.9 (0.7-2.0) mmol/L Calcium 9.7 (8.4-10.2) mg/dL Total Bilirubin 2.3 H (0.2-1.3) mg/dL AST 23 (17-59) U/L ALT 25 (21-72) U/L Alkaline Phosphatase 60 (38-126) U/L Troponin I (0.000-0.034) ng/mL Total Protein 7.3 (6.3-8.2) g/dL Albumin 4.1 (3.5-5.0) g/dL Amylase 54 (30-110) U/L Lipase 32 (23-300) U/L 05/15/18 05/15/18 Range/Units 10:21 10:21 WBC (3.8-10.6) k/uL RBC (4.30-5.90) m/uL Hgb (13.0-17.5) gm/dL Hct (39.0-53.0) % MCV (80.0-100.0) fL MCH (25.0-35.0) pg MCHC (31.0-37.0) g/dL RDW (11.5-15.5) % Plt Count (150-450) k/uL Neutrophils % % Lymphocytes % % Monocytes % % Eosinophils % % Basophils % % Neutrophils # (1.3-7.7) k/uL Lymphocytes # (1.0-4.8) k/uL Monocytes # (0-1.0) k/uL Eosinophils # (0-0.7) k/uL Basophils # (0-0.2) k/uL PT 11.1 (9.0-12.0) sec INR 1.1 (<1.2) APTT 24.7 (22.0-30.0) sec Sodium (137-145) mmol/L Potassium (3.5-5.1) mmol/L Chloride (98-107) mmol/L Carbon Dioxide (22-30) mmol/L Anion Gap mmol/L BUN (9-20) mg/dL Creatinine (0.66-1.25) mg/dL Est GFR (CKD-EPI)AfAm (>60 ml/min/1.73 sqM) Est GFR (CKD-EPI)NonAf (>60 ml/min/1.73 sqM) Glucose (74-99) mg/dL Plasma Lactic Acid Guillermo (0.7-2.0) mmol/L Calcium (8.4-10.2) mg/dL Total Bilirubin (0.2-1.3) mg/dL AST (17-59) U/L ALT (21-72) U/L Alkaline Phosphatase (38-126) U/L Troponin I <0.012 (0.000-0.034) ng/mL Total Protein (6.3-8.2) g/dL Albumin (3.5-5.0) g/dL Amylase (30-110) U/L Lipase (23-300) U/L Disposition Clinical Impression: Nausea & vomiting, Abdominal pain Disposition: HOME SELF-CARE Condition: Good Instructions: Abdominal Pain (ED), Acute Nausea and Vomiting (ED) Prescriptions: HYDROcodone/APAP 5-325MG [[place] 5-325] 1 tab PO Q6HR PRN #12 tab PRN Reason: Pain Is patient prescribed a controlled substance at d/c from ED?: No Referrals: Alexys Talbot MD [Primary Care Provider] - 1-2 days Time of Disposition: 12:39
[2018-05-15 10:36] LABS: Basophils % (A) 0 %; Eosinophils # (A) 0.1 k/uL (0-0.7); Eosinophils % (A) 1 %; HCT 49.2 % (39.0-53.0); HGB 16.1 gm/dL (13.0-17.5); Lymphocytes % (A) 8 %; MCH 30.5 pg (25.0-35.0); MCHC 32.8 g/dL (31.0-37.0); Mean Platelet Volume 7.9; Monocytes # (A) 0.6 k/uL (0-1.0); Monocytes % (A) 5 %; Neutrophils # (A) 10.6 k/uL (1.3-7.7); Neutrophils % (A) 84 %; Platelet Count 202 k/uL (150-450); RBC 5.29 m/uL (4.30-5.90); RDW 13.2 % (11.5-15.5); WBC 12.5 k/uL (3.8-10.6)
[2018-05-15 10:38] VITALS: RESP 18
[2018-05-15 10:46] LABS: ALT 25 U/L (21-72); AST 23 U/L (17-59); Albumin 4.1 g/dL (3.5-5.0); Alkaline Phosphatase 60 U/L (38-126); Amylase 54 U/L (30-110); Anion Gap 12 mmol/L; Blood Urea Nitrogen 21 mg/dL (9-20); Calcium 9.7 mg/dL (8.4-10.2); Carbon Dioxide 22 mmol/L (22-30); Chloride 103 mmol/L (98-107); Glucose 137 mg/dL (74-99); Lipase 32 U/L (23-300); Potassium 4.1 mmol/L (3.5-5.1); Sodium 137 mmol/L (137-145); Total Bilirubin 2.3 mg/dL (0.2-1.3); Total Protein 7.3 g/dL (6.3-8.2)
[2018-05-15 10:50] LABS: INR 1.1 (<1.2); Partial Thromboplastin Time 24.7 sec (22.0-30.0); Prothrombin Time 11.1 sec (9.0-12.0)
--- NOTE | 2018-05-15 10:53 | XR ---
EXAMINATION TYPE: XR KUB DATE OF EXAM: 05/15/2018 COMPARISON: None INDICATION: Abdomen pain TECHNIQUE: Single view abdomen upright view FINDINGS: No free air is evident. No suspicious differential air-fluid levels are present. There is a normal bowel gas pattern. Psoas margins are normal. No organomegaly is present. IMPRESSION: 1. Unremarkable Abdomen
--- NOTE | 2018-05-15 12:12 | US ---
EXAMINATION TYPE: US gallbladder DATE OF EXAM: 05/15/2018 COMPARISON: NONE CLINICAL HISTORY: Pain. N/V, not NPO EXAM MEASUREMENTS: Liver Length: 15.9 cm Gallbladder Wall: 0.2 cm CBD: 0.4 cm CHD: 0.4 cm Right Kidney: 12.2 x 6.1 x 4.8 cm Pancreas: Tail obscured by overlying bowel gas. Body appears echogenic in appearance. Main pancrea tic duct - 2.4 mm Liver: wnl Gallbladder: wnl Evidence for sonographic Benjamin's sign: neg CHD: wnl CBD: wnl Right Kidney: wnl IMPRESSION: 1. Mild fatty infiltration liver. 2. No suspicious acute changes.
[2018-05-15 13:05] VITALS: BP 116/65; PULSE 58; TEMP 98
== END 2018-05-15 13:03 | disposition home or self-care (01) ==
LOC: EC 09:29
DX: R11.2 Nausea with vomiting, unspecified (principal); R10.13 Epigastric pain; R19.7 Diarrhea, unspecified; D72.829 Elevated white blood cell count, unspecified; G47.30 Sleep apnea, unspecified; Z79.82 Long term (current) use of aspirin; Z79.899 Other long term (current) drug therapy; Z88.5 Allergy status to narcotic agent; Z99.89 Dependence on other enabling machines and devices; Z85.828 Personal history of other malignant neoplasm of skin; Z96.612 Presence of left artificial shoulder joint
CPT/HCPCS: 36415; 93005; 80053; 82150; 83605; 83690; 84484; 85025; 85610; 85730; 74018; 76705; 99284; 96374; 96375 ×2; 96361 ×3; J2405; J1170; C9113

== ENCOUNTER → 2019-11-09 | Outpatient (CLI) | payer MEDICARE | END | disposition home or self-care (01) | LOC: LABPAT 10:09 | PROVIDERS: ATTEND Orthopaedic Surgery | DX: Z01.812 Encounter for preprocedural laboratory examination (principal); E78.2 Mixed hyperlipidemia; R03.0 Elevated blood-pressure reading, without diagnosis of hypertension; E03.9 Hypothyroidism, unspecified | CPT/HCPCS: 87070 ==

== ENCOUNTER → 2019-11-21 | Outpatient (CLI) | payer MEDICARE ==
[2019-11-21 09:01] LABS: INR 1.2 (<1.2); Prothrombin Time 12.2 sec (9.0-12.0)
== END | disposition home or self-care (01) ==
LOC: LABPAT 07:57
PROVIDERS: ATTEND Orthopaedic Surgery
DX: Z01.818 Encounter for other preprocedural examination (principal); M16.11 Unilateral primary osteoarthritis, right hip
CPT/HCPCS: 85610

== ENCOUNTER → 2019-11-21 | Outpatient (CLI) | payer MEDICARE ==
[2019-11-21 08:58] LABS: Basophils % (A) 0 %; Eosinophils # (A) 0.3 k/uL (0-0.7); Eosinophils % (A) 5 %; HGB 16.1 gm/dL (13.0-17.5); Lymphocytes # (A) 1.4 k/uL (1.0-4.8); Lymphocytes % (A) 25 %; MCH 32.3 pg (25.0-35.0); MCHC 33.5 g/dL (31.0-37.0); MCV 96.4 fL (80.0-100.0); Mean Platelet Volume 7.5; Monocytes # (A) 0.3 k/uL (0-1.0); Monocytes % (A) 6 %; Neutrophils # (A) 3.7 k/uL (1.3-7.7); Neutrophils % (A) 63 %; Platelet Count 183 k/uL (150-450); RBC 4.98 m/uL (4.30-5.90); WBC 5.8 k/uL (3.8-10.6)
[2019-11-21 17:02] LABS: African American GFR (CKD) 83.2 (60.0-200.0); Albumin 3.9 g/dL (3.80-4.90); Albumin/Globulin Ratio 1.56 (1.60-3.17); Anion Gap 6.4 mmol/L (4.00-12.00); Carbon Dioxide 28.6 mmol/L (21.6-31.8); Chol/HDL Ratio 4.63; Globulin 2.5 g/dL (1.6-3.3); Non-African American GFR(CKD) 71.8 (60.0-200.0); Potassium 4.1 mmol/L (3.5-5.5); Total Bilirubin 1.7 mg/dL (0.3-1.2); Total Protein 6.4 g/dL (6.2-8.2)
[2019-11-21 17:10] LABS: T4, Free (Free Thyroxine) 1.1 ng/dL (0.80-1.80)
[2019-11-21 17:48] LABS: Hemoglobin A1C 5.4 % (4.0-6.0)
== END | disposition home or self-care (01) ==
LOC: LABWHC1 07:55
PROVIDERS: ATTEND Internal Medicine Geriatric Medicine
DX: R79.9 Abnormal finding of blood chemistry, unspecified (principal); E78.2 Mixed hyperlipidemia; E03.9 Hypothyroidism, unspecified; R03.0 Elevated blood-pressure reading, without diagnosis of hypertension
CPT/HCPCS: 36415; 80053; 80061; 83036; 84439; 84443; 85025

== ENCOUNTER 2019-11-28 06:24 | Day surgery (SDC) | payer MEDICARE ==
[2019-11-26 08:42] VITALS: BMI 25.7
--- NOTE | 2019-11-27 14:02 | HP ---
HISTORY AND PHYSICAL DATE OF SURGERY: 11/28/2019 Cornelius Portillo is a 79-year-old patient seen with symptomatic right knee osteoarthritis, after options for treatment were discussed, he elected to proceed with right total knee arthroplasty. Consent was obtained. Medical clearance was provided by Dr. Alexys Talbot. PAST MEDICAL HISTORY: Benign prostatic hypertrophy. PAST SURGICAL HISTORY: Knee arthroscopy, shoulder arthroscopy. DAILY MEDICATIONS: Flomax. ALLERGIES: CODEINE. SOCIAL HISTORY: Denies current tobacco use. PHYSICAL EVALUATION RIGHT KNEE: Range of motion is -3 to 110. There is tenderness along the medial joint line. Positive medial Donato's, crepitus along the medial patellofemoral compartments range of motion. Ligaments appear stable. Hip rotation is without pain. Distal neurovascular exam is intact. . RIGHT KNEE RADIOGRAPHS: Reveal severe osteoarthritic changes. IMPRESSION: Right knee osteoarthritis. PLAN: Right total knee arthroplasty. MMODL / IJN: [id number] /
[~2019-11-28 06:24] MED LIST changes: +DEXAMETHASONE SOD PHOSPHATE 10 MG/ML 1 ML VIAL IV ONE; +HYDROmorphone 0.5 MG/0.5 ML SYRINGE IVP PRN; +LIDOCAINE 1% (10MG/ML) FOR IV START INTRADERMA PRN; +ONDANSETRON 4 MG/2 ML VIAL IVP ONE; +ROPIVACAINE 246.25 MG, EPINEPHrine 0.5 MG, KETOROLAC 30 MG, cloNIDine HCL/PF 80 MCG, WA... MISCELLANE ONE; -ceFAZolin IN SWFI 2 GM/20 ML SYRINGE IVP ONE; -fentaNYL (PF) 50 MCG/ML 2 ML AMP IV PRN; +fentaNYL (PF) 50 MCG/ML 2 ML AMP IVP PRN
[2019-11-28] MEDS ORDERED: ACETAMINOPHEN TAB 500 MG TAB ONE (07:05)
[2019-11-28] MEDS ORDERED: ONDANSETRON 4 MG/2 ML VIAL ONE (07:05)
[2019-11-28] MEDS: LACTATED RINGERS 1,000 ML IV SCH ×2 (07:10→13:53)
[2019-11-28] MEDS ORDERED: MIDAZOLAM 2 MG/2 ML VIAL IVP ONE (07:19)
[2019-11-28] MEDS ORDERED: ROPIVACAINE 0.2%-NS ON-Q PUMP 1,090 MG, EMPTY PAIN BALL 1 EACH MISCELLANE PRN (07:54)
--- NOTE | 2019-11-28 07:56 | P.ANPRN ---
Procedure Note - Anesthesia - Nerve Block Performed Right Adductor Canal Time Out Performed: Yes (07:19) Date of Procedure: 11/28/19 Procedure Start Time: Procedure Stop Time: : Location of Patient: PreOp Indication: Acute Post-Operative Pain, Requested by Surgeon (Dr James) Sedation Type: Sedate with meaningful contact maintained Preparation: Sterile Prep, Sterile Dressing Position: Supine Catheter: Indwelling Needle Types: Pajunk Needle Gauge: 21 Ultrasound used to visualize needle placement: Yes Ultrasound used to observe medication spread: Yes Injectate: 0.5% Ropivacaine (see comment for volume) (20cc) Blood Aspirated: No Pain Paresthesia on Injection Noted: No Resistance on Injection: Normal Image Stored and Saved: Yes Events: Uneventful and Well Tolerated
[2019-11-28] MEDS ORDERED: TRANEXAMIC ACID 1,000 MG/10 ML VIAL ONE (07:57)
[2019-11-28] MEDS ORDERED: MIDAZOLAM 2 MG/2 ML VIAL ONE (07:57)
[2019-11-28] MEDS ORDERED: fentaNYL (PF) 50 MCG/ML 2 ML AMP ONE (07:57)
[2019-11-28] MEDS ORDERED: PROPOFOL 10 MG/ML 20 ML VIAL IV ONE (07:57)
[2019-11-28] MEDS ORDERED: SODIUM CHLORIDE 0.9% 100 ML BAG ONE (07:57)
[2019-11-28] MEDS ORDERED: HYDROcodone/APAP 5-325MG 1 EACH TAB PO PRN ×2 (10:08)
[2019-11-28] MEDS ORDERED: HYDROmorphone 0.5 MG/0.5 ML SYRINGE IVP PRN ×3 (10:08)
[2019-11-28] MEDS ORDERED: ONDANSETRON 4 MG/2 ML VIAL IVP PRN (10:08)
[2019-11-28] MEDS ORDERED: NALOXONE 0.4 MG/ML 1 ML VIAL IV PRN (10:08)
--- NOTE | 2019-11-28 10:08 | P.OP ---
Date of Procedure: 11/28/19 Preoperative Diagnosis: Right knee osteoarthritis Postoperative Diagnosis: Right knee osteoarthritis Procedure(s) Performed: Right total knee arthroplasty Implants: 1. Depuy attune size 6 right cruciate-retaining cemented femur 2. Depuy attune size 6 fixed bearing cemented tibial baseplate 3. Depuy attune size 6 fixed bearing cruciate retaining 7 mm polyethylene tibial insert 4. Depuy attune 41 mm all polyethylene cemented patella Anesthesia: regional (Adductor canal catheter), local, spinal Surgeon: Ivan James Sash Sticker #1: Carlos Yu Estimated Blood Loss (ml): 40 Pathology: other Condition: stable Disposition: PACU Indications for Procedure: 79-year-old patient seen with symptomatic right knee osteoarthritis. After treatment options were discussed, he elected to proceed with total knee arthroplasty. Operative Findings: See description of procedure Description of Procedure: Patient was taken to the operative suite after having an adductor canal catheter placed by the department of anesthesia. Patient underwent a spinal anesthetic by the department of anesthesia. Patient was given preoperative IV intake antibiotics and TXA. A well-padded tourniquet was placed about the right lower extremity. The lower extremity was then prepped and draped in the normal sterile orthopedic fashion. The extremity was elevated, a tourniquet was insuff lated to 300. A standard anterior incision was made sharply through skin. Dissection was taken down through the subcutaneous soft tissues down to the extensor mechanism. A medial arthrotomy was performed, patella was everted and knee was flexed. There was advanced osteoarthritis noted. I introduced my distal intramedullary femoral drill. I then introduced the distal femoral cutting jig. Tello DEL TORO secured the cutting jig with 2 pins. I held retractors in position while Tello DEL TORO performed the distal femoral resection through the guide area we now removed her distal femoral cutting guide. We now placed our 4-in-1 femoral cutting block and positioned and it was secured with 2 pins by Tello DEL TORO while I held the block in position. The distal femoral finishing was now completed. A proximal tibial cutting guide was positioned. I held the guide in the appropriate position with both hands well Tello DEL TORO inserted stabilizing pins into the guide. Proximal tibial cut was made. We now placed a trial femoral component into position, along with an appropriate size tibial tray and insert. We now took the knee through range of motion and had full extension good flexion and good overall soft tissue balance noted. The patella was everted and stabilized with 2 towel clips held by Tello DEL TORO while I performed a flush with patellar quad tendon utilizing a fresh sawblade. We templated the patella, appropriate drill holes were made. An appropriate trial patella was positioned, knee was taken through full range of motion with the patella tracking very nicely. The trial patella was removed. Drill holes were made through the femoral component. All trial components were removed after marking off the appropriate rotation of the tibia. Retractors were now positioned along the proximal tibia. An appropriate keel punch was made with the appropriate size tibial guide by myself on Tello DEL TORO assisted by holding retractors. At this point appropriate size implants were chosen and opened. The joint was irrigated copiously with pulse lavage mechanical irrigation. The posterior capsule was infiltrated with local analgesic. The wound was irrigated with pulse lavage mechanical irrigation. We mixed antibiotic methylmethacrylate. We placed the knee into flexion. We placed multiple retractors assisted by Tello DEL TORO to expose the proximal tibia. Once the methyl methacrylate was ready, the tibial component was cemented into place removing any excess methylmethacrylate form by both myself and Tello DEL TORO. The femoral component was cemented into place removing the removing any excess methylmethacrylate performed by both myself and Tello DEL TORO. We then inserted the appropriate size polyethylene tibial insert. We made sure that it was locked into position. We took the knee into full extension, and then back in a flexion making sure we had removed any excess methylmethacrylate. The patellar component was then cemented down and secured with clamp. Excess methylmethacrylate removed. We kept the knee in full extension, patellar clamp in position until methylmethacrylate had hardened. Once it had hardened the patellar clamp was removed. The knee was taken through full range of motion. The patella tracked nicely. There was good soft tissue balancing. The tourniquet was now released. Additional hemostasis was achieved via electrocautery. A second gram of TXA was given. The wound again was irrigated with pulse lavage mechanical irrigation. The superficial soft tissues were infiltrated local analgesic. The extensor mechanism was repaired with Vicryl. We checked the repair with range of motion and it was stable. The subcutaneous soft tissues were repaired with Vicryl in layers. The skin was approximated with pernio/Dermabond. Sterile dressings were applied followed by loose web roll and Nadeem bandage. The patient was transferred to a bed, and taken to recovery in stable and satisfactory condition. Tello DEL TORO assisted with this complex procedure.
--- NOTE | 2019-11-28 11:20 | XR ---
EXAMINATION TYPE: XR knee limited RT DATE OF EXAM: 11/28/2019 CLINICAL HISTORY: Right knee pain and arthritis status post total knee replacement. TECHNIQUE: Portable AP and crosstable lateral views of the right knee are obtained immediately posto peratively. COMPARISON: None FINDINGS: Metallic hardware from total right knee arthroplasty is seen and appears satisfactory in a lignment and position. There is evidence of recent surgery with diffuse subcutaneous gas and edema. No unexpected radiopaque foreign body. IMPRESSION: METALLIC HARDWARE FROM TOTAL RIGHT KNEE ARTHROPLASTY IS SATISFACTORY IN ALIGNMENT.
[2019-11-28] MEDS ORDERED: ACETAMINOPHEN TAB 325 MG TAB PO PRN (14:36)
[2019-11-28] MEDS: BUTALB/APAP/CAFF 50-325-40MG TAB PO PRN ×2 (15:46→20:03)
--- NOTE | 2019-11-28 17:15 | P.CONS ---
History of Present Illness - Reason for Consult Consult date: 11/28/19 Medical management Requesting physician: Ivan James - Chief Complaint Post right total knee arthroplasty, prostate cancer, severe headache, possi - History of Present Illness 79-year-old male one of my office patient with past medical history of prostate cancer along with obstructive sleep apnea and severe arthritis who had severe osteoarthritis until right knee for the last 2 years with failure to conservative management. Patient was seen orthopedic and schedule elective right total knee arthroplasty. Surgery was done today successfully with no major complication. Patient is been admitted to the floor feeling good except developed to have significant headache 2 hours after his admission and become slightly red worse with mild photophobia as well. Patient had spinal anesthesia beside regional block. Patient will be getting Fioricet and if continued to have headache will request anesthesia to do spinal patch for spinal leak. Review of Systems CONSTITUTIONAL: Well-developed no acute respiratory distress. EYES: No icterus sclerae, no conjunctivitis. EARS, NOSE, MOUTH, THROAT, and FACE: No sore throat, lymphadenopathy, carotid bruits or deformity. RESPIRATORY: No SOB cough or wheezes. CARDIOVASCULAR: No CP, Palpitation, PND, Orthopnea, or angina. GASTROINTESTINAL: No Abd pain, Nausea or vomiting, no Diarrhea or constipation, No GI Bleed, no distention or masses. GENITOURINARY: Negative for Hematuria or UTI, no kidney stones. INTEGUMENT/BREAST: Negative for any muscular injury with mild osteoarthritis.. Slight pain in the right knee area. HEMATOLOGIC/LYMPHATIC: Negative for bleed or purpura. MUSCULOSKELTAL: Negative for Myalgia or arthralgia. NEURLOGICAL: No LOC, Sz or syncope, blurred vision dizziness or abnormality.. Significant headache with photophobia. BEHAVIORAL/PSYCH: Negative. ENDOCRINE: Negative. Past Medical History Past Medical History: Prostate Disorder, Sleep Apnea/CPAP/BIPAP Additional Past Medical History / Comment(s): enlarged prostate, hx. skin cancer, hx. hepatitis A in college 56 yrs. ago, uses a bite splint for sleep apnea, History of Any Multi-Drug Resistant Organisms: None Reported Past Surgical History: Hernia Repair, Joint Replacement, Orthopedic Surgery Additional Past Surgical History / Comment(s): rotator cuff repair right, arthroscopies both knees,TLS 03/29/17, left shoulder total arthroplasty Past Anesthesia/Blood Transfusion Reactions: Previous Problems w/ Anesthesia Additional Past Anesthesia/Blood Transfusion Reaction / Comm: "hard to wake up" Past Psychological History: No Psychological Hx Reported Smoking Status: Never smoker Past Alcohol Use History: Occasional Additional Past Alcohol Use History / Comment(s): Patient lives at home with his . He states he is a lifelong nonsmoker. No illicit drug use. He does drink a glass of wine occasionally area last intake was 3 days ago. Past Drug Use History: None Reported - Past Family History Mother Family Medical History: Cancer Additional Family Medical History / Comment(s): breast Father Additional Family Medical History / Comment(s): Father had no major medical problems. Daughter(s) Additional Family Medical History / Comment(s): Patient has 2 children with no major medical problems. Medications and Allergies Home Medications Medication Instructions Recorded Confirmed Type Tamsulosin [Flomax] 0.4 mg PO BID 05/14/18 11/26/19 History Glucosam/Harish-Msm1/C/Abhijeet/Bosw 1 tab PO DAILY 05/15/18 11/26/19 History [Glucosamine-Chondroitin Tablet] Multivitamins, Thera [Multivitamin 1 tab PO DAILY 05/15/18 11/26/19 History (formulary)] Turmeric Root Extract [Turmeric] 500 mg PO DAILY 05/15/18 11/26/19 History Acetaminophen Tab [Tylenol Tab] 1,000 mg PO DIRECTED PRN 11/26/19 11/28/19 History Escitalopram [Lexapro] 5 mg PO DAILY 11/26/19 11/26/19 History Naproxen Sodium [Aleve] 220 mg PO BID PRN 11/26/19 11/26/19 History Allergies Allergy/AdvReac Type Severity Reaction Status Date / Time codeine AdvReac Rash/Hives Verified 11/28/19 06:41 Physical Exam Vitals: Vital Signs Temp Pulse Resp BP Pulse Ox 11/28/19 14:45 97.7 F 57 L 16 124/55 95 11/28/19 14:08 18 11/28/19 12:45 125/64 11/28/19 12:18 106/57 11/28/19 12:02 99/51 11/28/19 11:31 97.9 F 69 18 136/62 95 11/28/19 11:01 67 16 112/57 94 L 11/28/19 10:45 71 16 111/56 92 L 11/28/19 10:30 74 16 114/72 92 L 11/28/19 10:15 73 16 117/56 92 L 11/28/19 10:14 97.0 F L 74 14 124/60 94 L 11/28/19 07:32 54 L 17 133/62 97 11/28/19 07:14 97.9 F 52 L 17 139/66 98 Intake and Output 11/28/19 11/28/19 11/28/19 06:59 14:59 22:59 Intake Total 950 Output Total 40 Balance 910 Intake: IV 950 Output: Estimated Blood Loss 40 Other: Weight 78.925 kg General Appearance: Alert, cooperative, no distress, appears stated age. Neck HEENT: Supple, no lymphadenopathy, no thyroid enlargement, no carotid bruits. Lungs: Clear to auscultation without crackles or wheezes no rhonchi, no deformity. Chest Wall: Chest wall normal expansion with deep inspiration no tenderness and no deformity was found on exam, no costochondral pain or discomfort. Heart: Regular rate and rhythm, S1, S2 normal, no murmur, rub or gallop. Back: Symmetric, no curvature, ROM normal, no CVA tenderness. Abdomen: Soft, non-tender, bowel sounds active all four quadrants, no masses, no organomegaly. Extremities: Extremities normal, atraumatic, no cyanosis or edema. Incision looks fine still been wrapped with Nadeem wrap with no sign of bleed no induration patient is able to move his toes with no sign of dropping foot. Pulses: 2+ and symmetric. Skin: Skin color, texture, tugor normal, no rashes or lesions. Neurologic: Alert oriented x3 cranial nerves II through XII intact, no motor deficit, no abnormal balance or gait. Assessment and Plan Assessment: 1 post right total knee arthroplasty: Doing very well, resume home meds, continue DVT, GI and pulmonary prophylaxis protocol. Early mobilization and physical therapy. 2 severe headache post surgery with spinal leak: Continue patient on furosemide for now continue IV hydration if no improvement by tomorrow morning patient might require spinal patch by anesthesia. 3 history of prostate cancer: Has been in remission doing very well still on Flomax. 4 mild depression: Patient has been on citalopram doing very well with it. 5 GI prophylaxis: Patient will be on pantoprazole. 6 DVT prophylaxis: Patient will be continue on aspirin he might be place on Xarelto 10 mg per orthopedic for total of 2 weeks. CODE STATUS: Full code. Dr. James thank you very much for the consult if I can be any further help to please let me know.
[2019-11-28] MEDS: TAMSULOSIN 0.4 MG CAP.ER.24H PO SCH (20:03)
[2019-11-28] MEDS: ENOXAPARIN 30 MG/0.3 ML SYRINGE SQ SCH (20:04)
[2019-11-28] MEDS ORDERED: SENNOSIDES-DOCUSATE SODIUM 1 EACH TAB PO SCH (21:00)
[2019-11-29] MEDS: BUTALB/APAP/CAFF 50-325-40MG TAB PO PRN (00:57)
[2019-11-29 02:42] VITALS: PULSE 56
[2019-11-29] MEDS: LACTATED RINGERS 1,000 ML IV SCH ×2 (04:18→08:26)
--- NOTE | 2019-11-29 07:39 | P.PN ---
Progress Note - Text Progress Note Date: 11/29/19 (6171) Anesthesiology Status post right total knee with adductor catheter Gross strength intact, denies any paresthesias. Currently pain 4 out of 10 and rest able. 0 out of 10 pain overnight. No nausea or vomiting. No facial paresthesias or ear ringing. Dressing intact Heart regular rate Lungs nonlabored breathing Abdomen not distended Assessment #1 status post right total knee with adductor catheter Plan #1 maintain catheter
[2019-11-29 07:45] VITALS: BP 127/67; RESP 20; TEMP 98.1
[2019-11-29 08:00] LABS: Basophils % (A) 0 %; Eosinophils # (A) 0.2 k/uL (0-0.7); Eosinophils % (A) 1 %; HCT 43.9 % (39.0-53.0); Lymphocytes # (A) 2.2 k/uL (1.0-4.8); Lymphocytes % (A) 16 %; MCH 30.3 pg (25.0-35.0); MCHC 31.9 g/dL (31.0-37.0); MCV 94.9 fL (80.0-100.0); Mean Platelet Volume 7.7; Monocytes # (A) 0.9 k/uL (0-1.0); Monocytes % (A) 6 %; Neutrophils # (A) 10.4 k/uL (1.3-7.7); Neutrophils % (A) 75 %; Platelet Count 167 k/uL (150-450); RBC 4.62 m/uL (4.30-5.90); RDW 13.3 % (11.5-15.5); WBC 13.8 k/uL (3.8-10.6)
[2019-11-29] MEDS: ENOXAPARIN 30 MG/0.3 ML SYRINGE SQ SCH (08:39)
[2019-11-29] MEDS: TAMSULOSIN 0.4 MG CAP.ER.24H PO SCH (08:40)
[2019-11-29] MEDS ORDERED: MELOXICAM 7.5 MG TAB PO SCH (09:00)
[2019-11-29] MEDS ORDERED: ESCITALOPRAM 5 MG TAB PO SCH (09:00)
--- NOTE | 2019-11-29 10:56 | P.PN ---
Subjective Progress Note Date: 11/29/19 Principal diagnosis: s/p right tka patient is examined today in the thigh, he is resting comfortably. He is done very well. His pain is well-controlled. Objective - Vital Signs Vital signs: Vital Signs Temp 98.1 F 11/29/19 07:00 Pulse 56 L 11/29/19 07:00 Resp 20 11/29/19 07:00 BP 127/67 11/29/19 07:00 Pulse Ox 95 11/29/19 07:00 Intake & Output 11/28/19 11/29/19 11/29/19 18:59 06:59 18:59 Intake Total 950 860 240 Output Total 40 Balance 910 860 240 Weight 78.925 kg Intake: IV 950 Intake, IV Titration 610 Amount Lactated Ringers 1,000 ml 560 @ 70 mls/hr IV .[id number] [facility] Rx#:[id number] ceFAZolin 2 gm In Sodium 50 Chloride 0.9% 50 ml @ 100 mls/hr IVPB Q8HR [facility] Rx# :[id number] Oral 250 240 Output: Estimated Blood Loss 40 Other: Voiding Method Toilet # Voids 3 - Exam Right lower extremity: Incision is clean, dry, and intact. The optifoam dressing is in good condition. There is minimal soft tissue swelling and ecchymosis surrounding the medial and lateral aspects of the incision. Calf is soft, no tenderness with palpation. Plantar flexion, dorsiflexion, EHL, FHL are intact. Sensory exam to light touch throughout the extremity is intact, dorsal pedis pulses 2+. - Labs CBC & Chem 7: 11/29/19 07:19 Labs: Abnormal Lab Results - Last 24 Hours (Table) 11/29/19 Range/Units 07:19 WBC 13.8 H (3.8-10.6) k/uL Neutrophils # 10.4 H (1.3-7.7) k/uL Assessment and Plan Assessment: status post right total knee arthroplasty Plan: pain control, plan for discharge home on oral medication GI and DVT prophylaxis, aspirin 81 mg twice a day Wound care instructions and icing and elevating techniques discussed Home physical therapy and nursing after discharge Medical recommendations Plan for discharge home today Time with Patient: Less than 30
--- NOTE | 2019-11-29 10:59 | P.DS ---
Providers Date of admission: 11/28/2019 Expected date of discharge: 11/29/19 Attending physician: Ivan James Consults: 11/28/19 10:08 Consult Physician Routine Consulting Provider: Alexys Talbot Reason/Comments: Medical management Do you want consulting provider notified?: Yes Primary care physician: Alexys Talbot [facility] Course: Date of admission: 11/28/2019 Date of discharge: 11/29/2019 Admission diagnosis: Status post right total knee arthroplasty Discharge diagnosis: Same Attending physician: Dr. James Surgical procedures: right total knee arthroplasty Brief history: Patient is a 79-year-old male with a history of progressive primary right knee osteoarthritis. At this point patient has failed conservative treatment measures and has opted to proceed with a elective right total knee arthroplasty. Hospital course: Details of patient's surgery can be found in operative report. Patient tolerated the procedure well and was subsequently transported to orthopedic floor. Patient's orthopeidc and medical care was provided daily. Patient had daily laboratory tests performed for evaluation of overall blood counts . Patient had daily physical therapy to include strengthening range of motion as well as education with walker ambulation. Patient was treated with Lovenox for their postoperative DVT prophylaxis during their inpatient stay. Mell quinonez was noted to have a relatively uneventful postoperative course. Patient reported satisfactory pain control with oral pain medications by postoperative day 0. Patient showed satisfactory progress with physical therapy. Patient moved steadily through the program and had no difficulty meeting the goals by postoperative day 1 . Given patient's otherwise satisfactory course and having met physical therapy goals, plan is to discharge patient home on postoperative day 1. Discharge condition/disposition: Patient will be discharged home in stable condition. Discharge medications: Instructions are given on resumption of patient's normal daily medications per primary care recommendation, in addition patient will be prescribed [place] 5 mg/325 mg, Colace 100 mg, aspirin 81 mg. Discharge instructions: 1. Wound care and infection precautions, keep incision dry and covered while showering, no lotions, creams, moisturizers. No soaking, tubs, pools, hottubs. Do not scrub over the incision. 2. Weight-bear as tolerated with walker / cane until follow-up. 3. Ice and elevate when necessary. Do not exceed 20 minutes per hour with ice pack. 4. Utilize compression sleeve until seen at first follow up appointment. 5. Visiting nursing care. 6. Home physical therapy including home CPM. 7. Pain meds and anticoagulants per prescription. 8. Pain medication has potential to cause constipation. Increase oral fluid and fiber intake. Contact primary care provider if you have not had a bowel movement within 48 hours after discharge 9. No anti-inflammatory medication until discussed at first post operative visit, this including Motrin, Aleve, Mobic, Diclofenac 10. Follow up in office at 2 weeks postop with Tello uY PA-C 11. Follow up with your primary care doctor 7-10 days after discharge. 12. Contact [facility] with any questions, . Procedures: right total knee arthroplasty Patient Condition at Discharge: Good Plan - Discharge Summary Discharge Rx Participant: Yes New Discharge Prescriptions: New Butalb/APAP/Caff 50-325-40Mg [Fioricet 50-325-40] 1 each PO Q4HR PRN #20 tab PRN Reason: Headache Aspirin [Adult Low Dose Aspirin EC] 81 mg PO BID #60 tablet. Docfozia [Colace] 100 mg PO DAILY #30 capsule Hydrocodone/Acetaminophen [[place] 5-325] 1 - 2 each PO Q6HR PRN #56 tab PRN Reason: Pain Continue Tamsulosin [Flomax] 0.4 mg PO BID Glucosam/Harish-Msm1/C/Abhijeet/Bosw [Glucosamine-Chondroitin Tablet] 1 tab PO DAILY Multivitamins, Thera [Multivitamin (formulary)] 1 tab PO DAILY Turmeric Root Extract [Turmeric] 500 mg PO DAILY Acetaminophen Tab [Tylenol] 1,000 mg PO DIRECTED PRN PRN Reason: Pain Naproxen Sodium [Aleve] 220 mg PO BID PRN PRN Reason: Pain Escitalopram [Lexapro] 5 mg PO DAILY Discharge Medication List Tamsulosin [Flomax] 0.4 mg PO BID 05/14/18 [History] Glucosam/Harish-Msm1/C/Abhijeet/Bosw [Glucosamine-Chondroitin Tablet] 1 tab PO DAILY 05/15/18 [History] Multivitamins, Thera [Multivitamin (formulary)] 1 tab PO DAILY 05/15/18 [History] Turmeric Root Extract [Turmeric] 500 mg PO DAILY 05/15/18 [History] Acetaminophen Tab [Tylenol] 1,000 mg PO DIRECTED PRN 11/26/19 [History] Escitalopram [Lexapro] 5 mg PO DAILY 11/26/19 [History] Naproxen Sodium [Aleve] 220 mg PO BID PRN 11/26/19 [History] Aspirin [Adult Low Dose Aspirin EC] 81 mg PO BID #60 tablet. 11/29/19 [Rx] Butalb/APAP/Caff 50-325-40Mg [Fioricet 50-325-40] 1 each PO Q4HR PRN #20 tab 11/29/19 [Rx] Docusate [Colace] 100 mg PO DAILY #30 capsule 11/29/19 [Rx] Hydrocodone/Acetaminophen [[place] 5-325] 1 - 2 each PO Q6HR PRN #56 tab 11/29/19 [Rx] Follow up Appointment(s)/Referral(s): [facility] [NON-STAFF] - As Needed (Continuous Passive Motion knee machine) [facility], [NON-STAFF] - As Needed Carlos Yu, ISABEL [PHYSICIAN BATCH MAKER] - 2 Weeks Activity/Diet/Wound Care/Special Instructions: Orthopedic Discharge Instructions: 1. Wound care and infection precautions, keep incision dry and covered while showering, no lotions, creams, moisturizers. No soaking, pools, hot tubs. Do not scrub over incision. 2. Weight-bear as tolerated with walker / cane until follow-up. 3. Ice and elevate when necessary. Do not exceed 20 minutes per hour with ice pack. 4. Utilize compression sleeve until seen at first follow up appointment. 5. Pain meds and anticoagulants per prescription. 6. Pain medication has potential to cause constipation. Increase oral fluid and fiber intake. Contact primary care provider if you have not had a bowel movement within 48 hours after discharge. 7. No anti-inflammatory medication until discussed at first post operative visit, this including Motrin, Aleve, Mobic, Diclofenac. 8. Follow up in office at 2 weeks postop with Tello Yu PA-C 9. Follow up with your primary care doctor 7-10 days after discharge. 10. Contact [facility] with any questions, . Discharge Disposition: HOME WITH HOME HEALTH SERVICES
--- NOTE | 2019-11-29 15:27 | P.PN ---
Subjective Progress Note Date: 11/29/19 79-year-old male one of my office patient with past medical history of prostate cancer along with obstructive sleep apnea and severe arthritis who had severe osteoarthritis until right knee for the last 2 years with failure to conservative management. Patient was seen orthopedic and schedule elective rig ht total knee arthroplasty. Surgery was done today successfully with no major complication. Patient is been admitted to the floor feeling good except developed to have significant headache 2 hours after his admission and become slightly red worse with mild photophobia as well. Patient had spinal anesthesia beside regional block. Patient will be getting Fioricet and if continued to have headache will request anesthesia to do spinal patch for spinal leak. 11/28: Patient states that his headache is completely gone. He was started on Fioricet last night and states he also is laying flat and slept last night and the headache resolved completely. We will send a prescription for Fioricet. His pain is currently controlled to his right knee. Plan is to increase activity, PT evaluation and most likely home later today. Patient is afebrile, heart rate 56, blood pressure 127/67, pulse ox 95% on room air. WBC 13.8, hemoglobin 14. Medication reconciliation has been reviewed. Review of systems CONSTITUTIONAL: Well-developed no acute respiratory distress. Headache resolved. Denies fever, denies chills. EYES: No icterus sclerae, no conjunctivitis. EARS, NOSE, MOUTH, THROAT, and FACE: No sore throat, lymphadenopathy, carotid bruits or deformity. RESPIRATORY: No SOB cough or wheezes. CARDIOVASCULAR: No CP, Palpitation, PND, Orthopnea, or angina. GASTROINTESTINAL: No Abd pain, Nausea or vomiting, no Diarrhea or constipation, No GI Bleed, no distention or masses. GENITOURINARY: Negative for Hematuria or UTI, no kidney stones. INTEGUMENT/BREAST: Negative for any muscular injury with mild osteoarthritis.. Slight pain in the right knee area. HEMATOLOGIC/LYMPHATIC: Negative for bleed or purpura. MUSCULOSKELTAL: Negative for Myalgia or arthralgia. NEURLOGICAL: No LOC, Sz or syncope, blurred vision dizziness or abnormality headache resolved BEHAVIORAL/PSYCH: Negative. ENDOCRINE: Negative. Physical examination General Appearance: Alert, cooperative, no distress, appears stated age. Neck HEENT: Supple, no lymphadenopathy, no thyroid enlargement, no carotid bruits. Lungs: Clear to auscultation without crackles or wheezes no rhonchi, no deformity. Chest Wall: Chest wall normal expansion with deep inspiration no tenderness and no deformity was found on exam, no costochondral pain or discomfort. Heart: Regular rate and rhythm, S1, S2 normal, no murmur, rub or gallop. Back: Symmetric, no curvature, ROM normal, no CVA tenderness. Abdomen: Soft, non-tender, bowel sounds active all four quadrants, no masses, no organomegaly. Extremities: Extremities normal, atraumatic, no cyanosis or edema. Small dressi ng in place to the right knee. Pulses: 2+ and symmetric. Skin: Skin color, texture, tugor normal, no rashes or lesions. Neurologic: Alert oriented x3 cranial nerves II through XII intact, no motor def icit, no abnormal balance or gait. Assessment and plan 1 post right total knee arthroplasty: Doing very well, resume home meds, continue DVT, GI and pulmonary prophylaxis protocol. Early mobilization and physical therapy. 2 severe headache post surgery with spinal leak, resolved. Continue Fioricet for home as needed. : 3 history of prostate cancer: Has been in remission doing very well still on Flomax. 4 mild recurrent depression: Patient has been on citalopram doing very well with it. 5 GI prophylaxis: Patient will be on pantoprazole. 6 DVT prophylaxis: Patient will be continue on aspirin he might be place on Xarelto 10 mg per orthopedic for total of 2 weeks. CODE STATUS: Full code. Dr. James thank you very much for the consult if I can be any further help to please let me know. Discharge plan: Home Impression and plan of care have been directed as dictated by the signing physician. Lauryn Pineda nurse practitioner acting as scribe for signing physician. Objective - Vital Signs Vital signs: Vital Signs Temp 98.1 F 11/29/19 07:00 Pulse 56 L 11/29/19 07:00 Resp 20 11/29/19 07:00 BP 127/67 11/29/19 07:00 Pulse Ox 95 11/29/19 07:00 Intake & Output 11/28/19 11/29/19 11/29/19 18:59 06:59 18:59 Intake Total 950 860 Output Total 40 Balance 910 860 Weight 78.925 kg Intake: IV 950 Intake, IV Titration 610 Amount Lactated Ringers 1,000 ml 560 @ 70 mls/hr IV .[id number] [facility] Rx#:[id number] ceFAZolin 2 gm In Sodium 50 Chloride 0.9% 50 ml @ 100 mls/hr IVPB Q8HR [facility] Rx# :[id number] Oral 250 Output: Estimated Blood Loss 40 Other: Voiding Method Toilet # Voids 3 - Labs CBC & Chem 7: 11/29/19 07:19 Labs: Abnormal Lab Results - Last 24 Hours (Table) 11/29/19 Range/Units 07:19 WBC 13.8 H (3.8-10.6) k/uL Neutrophils # 10.4 H (1.3-7.7) k/uL
== END 2019-11-29 12:15 | disposition home health service (06) ==
LOC: OR 06:24 → 4SSUR 10:07 → OR 11-29 12:15
PROVIDERS: ATTEND Orthopaedic Surgery
DX: M17.11 Unilateral primary osteoarthritis, right knee (principal); G47.33 Obstructive sleep apnea (adult) (pediatric); F33.0 Major depressive disorder, recurrent, mild; N40.0 Benign prostatic hyperplasia without lower urinary tract symptoms; Z88.5 Allergy status to narcotic agent; Z85.46 Personal history of malignant neoplasm of prostate; Z79.899 Other long term (current) drug therapy; Z85.828 Personal history of other malignant neoplasm of skin; Z86.19 Personal history of other infectious and parasitic diseases; Z96.612 Presence of left artificial shoulder joint; Z80.3 Family history of malignant neoplasm of breast
CPT/HCPCS: 97116; 97110; 97161; 64448; 76942; 88305; 85025; 88311; 73560; 27447; C1776; C1713; J2250; J0171; J1100; J0690 ×2; J3010; J1885; J1650; J2795 ×2; J2704; J0735

== ENCOUNTER → 2021-01-28 | Outpatient (CLI) | payer MEDICARE ==
--- NOTE | 2021-01-28 09:54 | US ---
EXAMINATION TYPE: US carotid duplex BILAT DATE OF EXAM: 01/28/2021 COMPARISON: NONE CLINICAL HISTORY: Dizziness R42, Headache R51. Dizziness and headaches. EXAM MEASUREMENTS: RIGHT: Peak Systolic Velocity (PSV) cm/sec ----- Right CCA: 104.3 ----- Right ICA: 116.9 ----- Right ECA: 107.8 ICA/CCA ratio: 1.1 RIGHT: End Diastole cm/sec ----- Right CCA: 19.4 ----- Right ICA: 30.2 ----- Right ECA: 9.4 LEFT: Peak Systolic Velocity (PSV) cm/sec ----- Left CCA: 97.5 ----- Left ICA: 107.8 ----- Left ECA: 81.0 ICA/CCA ratio: 1.1 LEFT: End Diastole cm/sec ----- Left CCA: 19.8 ----- Left ICA: 21.1 ----- Left ECA: 0.0 VERTEBRALS (direction of flow): Right Vertebral: Antegrade Left Vertebral: Antegrade Rhythm: Normal Plaque seen within bilateral bulbs and right ICA and ECA. Hypoechoic area with hyperechoic center seen right neck: 1.8 x 1.5 x 0.5 cm. Hypoechoic area with hyperechoic center seen left neck: 2.0 x 1.1 x 0.6 cm. IMPRESSION: 1. Mild intimal thickening present. No significant flow-limiting stenosis is evident. 2. Bilateral neck lymphadenopathy NASCET criteria was used in interpretation of this exam? Criteria for Assigning % of Stenosis / Diameter reduction (Estimation based on the indirect measurements of the internal carotid artery velocities (ICA PSV). 1. Normal (no stenosis)=ICA PSV < 125 cm/s: ratio < 2.0: ICA EDV<40 cm/s. 2. Less than 50% stenosis=ICA PSV < 125 cm/s: ratio < 2.0: ICA EDV<40 cm/s. 3. 50 to 69% stenosis=ICA PSV of 125 to 230 cm/s: ration 2.0 ? 4.0: ICA EDV 40-100 cm/s. 4. Greater than 70% stenosis to near occlusion= ICA PSV > 230 cm/s: ratio > 4.0: ICA EDV > 100 cm/s. 5. Near occlusion= ICA PSV velocities may be low or undetectable: variable ratio and ICA EDV. 6. Total occlusion=unable to detect flow.
== END | disposition home or self-care (01) ==
LOC: RADUSWWP 08:09
PROVIDERS: ATTEND Psychiatry & Neurology Neurology
DX: I65.23 Occlusion and stenosis of bilateral carotid arteries (principal); R59.0 Localized enlarged lymph nodes
CPT/HCPCS: 93880

== ENCOUNTER → 2021-03-27 | Outpatient (CLI) | payer MEDICARE | END | disposition home or self-care (01) | LOC: LABPAT 15:06 | PROVIDERS: ATTEND Orthopaedic Surgery | DX: Z01.812 Encounter for preprocedural laboratory examination (principal); M12.811 Other specific arthropathies, not elsewhere classified, right shoulder; Z22.322 Carrier or suspected carrier of Methicillin resistant Staphylococcus aureus | CPT/HCPCS: 87070 ==

== ENCOUNTER 2021-03-31 11:00 | Day surgery (SDC) | payer MEDICARE ==
[2021-03-30 08:18] VITALS: BMI 25.7
--- NOTE | 2021-03-30 08:54 | HP ---
HISTORY AND PHYSICAL CHIEF COMPLAINT: Right shoulder pain and weakness. HISTORY OF PRESENT ILLNESS: The patient is a 80-year-old, left-hand dominant, retired gentleman who presents with progressive right shoulder pain for the past several years, worsening recently. He is having pain with any attempted overhead use. He is having significant night symptoms. He has tried previous injections and medications with only partial temporary relief. He notes daily pain is severely limiting. PAST MEDICAL HISTORY: Significant for arthritis in addition to prostatic hypertrophy. CURRENT MEDICATIONS: Flomax, Aleve and Tylenol. ALLERGY: He has sensitivity to codeine, however, no rosita drug allergies. SURGICAL HISTORY: Significant for previous total knee arthroplasty in addition to left total shoulder arthroplasty. REVIEW OF SYSTEMS: Sixteen-point review of systems otherwise reviewed and noncontributory. PHYSICAL EXAMINATION: On examination, the patient is approximately 5 foot 9, 173 pounds of mesomorphic habitus. HEENT exam is nonfocal. NECK is supple. Active range of motion right shoulder: Flexion 90 degrees external rotation of the shoulder with the arm at the side is 25 degrees, internal rotation to L3. He is tender about the anterior subacromial space and glenohumeral joint. He has moderate crepitus. Passively I am able to forward elevate him 140 degrees. His distal neurovascular exam appears intact in the right upper extremity. AP and scapular outlet views along with axillary lateral views of the right shoulder show severe osteoarthrosis with [id number] changes in addition to diminished humeral head to acromial distance. Previous metallic anchors are noted. IMPRESSION: 1. Severe right shoulder rotator cuff arthropathy. 2. History of right open rotator cuff repair. RECOMMENDATIONS: I talked the patient at length regarding his condition along with treatment options. At this point, he is quite limited because of pain and weakness despite previous conservative measures. After thorough discussion, he opts to proceed with surgery. We will plan to proceed with reverse right total shoulder arthroplasty. Risks and benefits were discussed at length in layman's terms. MMODL / IJN: [id number] /
[~2021-03-31 11:00] MED LIST changes: -ACETAMINOPHEN TAB 500 MG TAB PO ONE; +ACETAMINOPHEN TAB 500 MG TAB PO PRN; -DEXAMETHASONE SOD PHOSPHATE 10 MG/ML 1 ML VIAL IV ONE; +DEXAMETHASONE SOD PHOSPHATE 4 MG/ML 1 ML VIAL IV ONE; -MELOXICAM 7.5 MG TAB PO ONE; +MELOXICAM 7.5 MG TAB PO PRN; -ROPIVACAINE 246.25 MG, EPINEPHrine 0.5 MG, KETOROLAC 30 MG, cloNIDine HCL/PF 80 MCG, WA... MISCELLANE ONE; -TRANEXAMIC ACID 1,000 MG in SODIUM CHLORIDE 0.9% 100 ML IVPB ONE; +TRANEXAMIC ACID 1,000 MG in SODIUM CHLORIDE 0.9% 100 ML IVPB PRN; -fentaNYL (PF) 50 MCG/ML 2 ML AMP IVP PRN
[2021-03-31] MEDS: LACTATED RINGERS 1,000 ML IV SCH (11:51)
[2021-03-31] MEDS ORDERED: MIDAZOLAM 2 MG/2 ML VIAL IVP ONE (12:19)
--- NOTE | 2021-03-31 13:03 | P.ANPRN ---
Procedure Note - Anesthesia - Nerve Block Performed Right Interscalene Single Date of Procedure: 03/31/21 Procedure Start Time: 12:18 Procedure Stop Time: 12:36 Location of Patient: PreOp Indication: Acute Post-Operative Pain, Requested by Surgeon Specifically requested for management of pain by DrGina: Riki Wright Sedation Type: Sedate with meaningful contact maintained Preparation: Sterile Prep Position: Sitting Catheter: None Needle Types: Pajunk Needle Gauge: 21 Ultrasound used to visualize needle placement: Yes Ultrasound used to observe medication spread: Yes Injectate: 0.5% Ropivacaine (see comment for volume) (25) Blood Aspirated: No Pain Paresthesia on Injection Noted: No Resistance on Injection: Normal Image Stored and Saved: Yes Events: Uneventful and Well Tolerated (25 mls)
[2021-03-31] MEDS ORDERED: ROCURONIUM 10 MG/ML (5 ML VIAL) IV ONE (13:20)
[2021-03-31] MEDS ORDERED: SODIUM CHLORIDE 0.9% 100 ML BAG ONE (13:20)
[2021-03-31] MEDS ORDERED: LIDOCAINE 1% INJ 10MG/ML (20 ML MDV) ONE (13:20)
[2021-03-31] MEDS ORDERED: WATER FOR INJECTION, STERILE 10 ML VIAL IV ONE (13:20)
[2021-03-31] MEDS ORDERED: ROPIVACAINE 5 MG/ML 30 ML VIAL ONE (13:20)
[2021-03-31] MEDS ORDERED: NEOSTIGMINE 1 MG/ML 10 ML VIAL ONE (13:20)
[2021-03-31] MEDS ORDERED: SUCCINYLCHOLINE CHLORIDE 100 MG/5 ML SYR IV ONE (13:20)
[2021-03-31] MEDS ORDERED: TRANEXAMIC ACID 1,000 MG/10 ML VIAL ONE (13:20)
[2021-03-31] MEDS ORDERED: fentaNYL (PF) 50 MCG/ML 2 ML AMP ONE (13:20)
[2021-03-31] MEDS ORDERED: DEXAMETHASONE SOD PHOSPHATE 4 MG/ML 1 ML VIAL ONE (13:20)
[2021-03-31] MEDS ORDERED: PROPOFOL 10 MG/ML 20 ML VIAL IV ONE (13:20)
[2021-03-31] MEDS ORDERED: ePHEDrine 50 MG/ML 1 ML AMP ONE (13:20)
[2021-03-31] MEDS ORDERED: PHENYLEPHRINE-0.9% NACL SYG 1,000 MCG/10 ML SYRINGE ONE (13:20)
[2021-03-31] MEDS ORDERED: VASOPRESSIN 20 UNIT/ML 1 ML VIAL ONE (13:20)
[2021-03-31] MEDS ORDERED: GLYCOPYRROLATE 0.2 MG/ML 2 ML VIAL ONE (13:20)
[2021-03-31] MEDS ORDERED: ceFAZolin 1,000 MG in SODIUM CHLORIDE 0.9% 1,000 ML IRRIGATION ONE (13:54)
[2021-03-31] MEDS ORDERED: LACTATED RINGERS 1,000 ML IV ONE (14:21)
[2021-03-31] MEDS ORDERED: HYDROmorphone 0.2 MG/1 ML SYRINGE IVP PRN (15:43)
[2021-03-31] MEDS ORDERED: HYDROcodone/APAP 5-325MG 1 EACH TAB PO PRN (15:43)
[2021-03-31] MEDS ORDERED: SENNOSIDES-DOCUSATE SODIUM 1 EACH TAB PO PRN (15:43)
--- NOTE | 2021-03-31 15:47 | P.OP ---
Date of Procedure: 03/31/21 Preoperative Diagnosis: Right rotator cuff arthropathy/glenoid joint arthritis Postoperative Diagnosis: Same Procedure(s) Performed: Reverse right total shoulder arthroplasty Implants: Depuy Delta Xtend size 10 press-fit humeral stem with size 1 epiphysis, 38+6 articular surface, 38 mm glenosphere with standard baseplate with a +10 central peg. [facility] Surgeon: Riki Wright Adult Nurse Practitioner #1: Beto Starkey Estimated Blood Loss (ml): 200 Pathology: other (Humeral head) Condition: stable Disposition: PACU Indications for Procedure: The patient's a 80-year-old male who presents with progressive right shoulder pa in and weakness despite conservative measures. He has a history of a rotator cuff repair. A discussion of the risks and benefits of operative intervention versus continued conservative measures was made with patient. He opted to proceed with surgery. Operative risks to include infection, neurovascular injury, fracture, instability, development of blood clots, possible component loosening/failure need for subsequent procedures was discussed. Informed consent was obtained. Operative Findings: As below Description of Procedure: The patient was brought to the operating room, and after induction of general anesthesia was placed in a beachchair position. The bony prominences were appropriately padded. I examined the right shoulder. There was moderate lack of passive forward elevation and external rotation. The right upper extremity was prepped and draped in normal fashion. The bony outlines the coracoid process, distal clavicle, and acromion were outlined with a skin marker. A 12 centimeter deltopectoral incision was made lateral to the coracoid process. Skin was incised sharply. Subcutaneous tissues were divided bluntly. Electrocautery was used for hemostasis. The cephalic vein was identified and gently retracted laterally with the deltoid. The deltopectoral interval was bluntly developed. Subdeltoid adhesions were then released. The self-retaining retractor was placed. The conjoined tendon was retracted medially and the deltoid laterally. The upper one third of the pectoralis was released to aid in exposure. The anterior circumflex vessels were coagulated with electrocautery. The biceps was previously ruptured.. Pseudocapsule was excised. The head was then exposed. The shoulder was dislocated. A starting hole was made in line with the humeral shaft. The canal was reamed by hand up to size 10. There was good distal chatter. The cutting guide was then placed. I planned on 20 of retroversion. The humeral head cut was then made. The bone was removed in one fragment. Residual inferomedial osteophytes were removed flush with the [place] cortical bone. Attention was then paid towards preparing the glenoid. An anterior and posterior retractors placed. The labrum was released from the 12-6 o'clock position. Remaining biceps was removed as well. A guidepin was placed in the inferior aspect of the glenoid with the guide slightly tilting inferior. The reamer was used down to a bleeding bony surface. The central peg hole was drilled. The standard baseplate was inserted with good purchase. Inferior, superior, and posterior locking screws the appropriate length were placed. Good purchase was obtained. The 38 mm glenosphere was inserted over a guidewire. This was fully seated. Care was taken to avoid any soft tissue interposition. Attention was then paid towards preparing the proximal humerus. The appropriate broach was placed and 20 of retroversion and was fully seated. An eccentric size 1 epiphyseal reamer was utilized. A size 10 stem with a size 1 epiphysis was placed and 20 of retroversion. Trial reduction was obtained with a 38 mm +6 articular surface. The shoulder was taken through range of motion. He was felt to be stable in flexion and extension with internal and external rotation. I felt there was adequate baptism of soft tissue tension judging off the conjoined tendon. The shoulder was gently dislocated. The trial components were then removed. The final size 10 press-fit stem along with a size 1 epiphysis was fully seated. There was good rotational stability. The 38 mm + 6 articular surface was impacted. The shoulder again was gently reduced and taken through range of motion. Again it was felt to be stable in all planes. Pulsatile lavage was utilized. The subscapularis was a attached to the lesser tuberosity with #2 Ethibond suture. The deltopectoral interval was closed with interrupted 2-0 Vicryl sutures. The skin was reapproximated with 3-0 subcuticular Prolene suture. Steri-Strips were applied. A sterile dressing was applied. A sling was placed. The patient was awoken from general anesthes ia and transferred to recovery room in good condition. Blood loss was estimated at 200 mL. No complications were incurred. Sponge and needle counts were correct at the end the case. Beto DEL TORO assisted during the major components of the case to include exposure, glenoid and humeral preparation, implantation, and closure.
--- NOTE | 2021-03-31 16:15 | XR ---
EXAMINATION TYPE: XR shoulder limited RT DATE OF EXAM: 03/31/2021 COMPARISON: NONE HISTORY: Postop TECHNIQUE: One view submitted FINDINGS: Postsurgical changes are noted and there is soft tissue edema and emphysema. Right basilar consolidation. IMPRESSION: Postoperative change with right basilar infiltrate.
[2021-04-01] MEDS: LACTATED RINGERS 1,000 ML IV SCH (04:06)
[2021-04-01] MEDS: HYDROmorphone 0.5 MG/0.5 ML SYRINGE IVP PRN ×3 (06:16→15:31)
[2021-04-01 06:21] LABS: Basophils % (A) 0 %; Eosinophils # (A) 0.1 k/uL (0-0.7); Eosinophils % (A) 1 %; HCT 40.6 % (39.0-53.0); Lymphocytes # (A) 1.1 k/uL (1.0-4.8); Lymphocytes % (A) 8 %; MCH 32.2 pg (25.0-35.0); MCHC 34.5 g/dL (31.0-37.0); MCV 93.5 fL (80.0-100.0); Mean Platelet Volume 7.4; Monocytes # (A) 0.8 k/uL (0-1.0); Monocytes % (A) 6 %; Neutrophils # (A) 11.2 k/uL (1.3-7.7); Neutrophils % (A) 84 %; Platelet Count 206 k/uL (150-450); RBC 4.35 m/uL (4.30-5.90); RDW 13.3 % (11.5-15.5); WBC 13.3 k/uL (3.8-10.6)
[2021-04-01] MEDS: ASPIRIN 325 MG TAB PO SCH (08:03)
--- NOTE | 2021-04-01 10:44 | P.PN ---
Subjective Progress Note Date: 04/01/21 Principal diagnosis: Status post reverse right total shoulder arthroplasty Patient evaluated at bedside today, he is resting in his hospital bed. He is having some increasing pain today, he did use a lot of this morning. He is also using the [place] 5 mg/325 mg. We did discuss at bedside to increase this today, I also discussed this with nursing. Patient is tolerating his diet well. He is urinating with no difficulties. He is utilizing the arm sling. Currently has no headaches, lightheadedness, chest pain or shortness of breath. Objective - Vital Signs Vital signs: Vital Signs Temp 98.7 F 04/01/21 06:42 Pulse 95 04/01/21 06:42 Resp 20 04/01/21 06:42 BP 129/60 04/01/21 06:42 Pulse Ox 95 04/01/21 06:42 Intake & Output 03/31/21 04/01/21 04/01/21 18:59 06:59 18:59 Intake Total 1851 200 Output Total 200 Balance 1651 200 Weight 77.3 kg Intake: IV 1851 Oral 200 Output: Estimated Blood Loss 200 Other: Voiding Method Toilet Urinal # Voids 2 - Exam Right upper extremity: Postoperative bandage is removed today, Steri-Strips and suture in good position and condition. Mild soft tissue swelling present throughout the extremity with ecchymosis. Shoulder motion was not assessed, flexion and extension are intact at the elbow, hand/wrist. Sensation to light touch is intact throughout the extremity. Radial and ulnar pulses are 2+. - Labs CBC & Chem 7: 04/01/21 05:50 Labs: Abnormal Lab Results - Last 24 Hours (Table) 04/01/21 Range/Units 05:50 WBC 13.3 H (3.8-10.6) k/uL Neutrophils # 11.2 H (1.3-7.7) k/uL Assessment and Plan Assessment: Postoperative day #1 status post reverse right total shoulder arthroplasty Plan: Pain control, will adjust oral medication and [place] 7.5 mg/325 mg GI and DVT prophylaxis, aspirin 325 mg daily, this will utilize to discharge for 2 weeks Wound care instructions were discussed, this including icing and elevating along with showering Activity lower extremity was discussed, this including use of the arm sling Internal medicine recommendations Discharge planning: Discussed with patient and nurse will check an later this afternoon, if he is doing well plan for discharge home today Time with Patient: Less than 30
[2021-04-01] MEDS: HYDROcodone/APAP 7.5-325MG 1 EACH TAB PO PRN ×2 (12:28→20:36)
[2021-04-01] MEDS: hydrOXYzine pamoate 25 MG CAP PO PRN (20:37)
[2021-04-01 20:41] VITALS: RESP 16
[2021-04-02] MEDS: HYDROcodone/APAP 7.5-325MG 1 EACH TAB PO PRN (03:17)
[2021-04-02] MEDS: hydrOXYzine pamoate 25 MG CAP PO PRN (03:17)
[2021-04-02 05:32] VITALS: BP 131/73; PULSE 77; TEMP 98.1
[2021-04-02] MEDS: LACTATED RINGERS 1,000 ML IV SCH (08:08)
[2021-04-02] MEDS: ASPIRIN 325 MG TAB PO SCH (08:10)
--- NOTE | 2021-04-02 09:13 | P.PN ---
Subjective Progress Note Date: 04/02/21 Principal diagnosis: Status post reverse right total shoulder arthroplasty Patient evaluated at bedside today, he is resting in his hospital bed. Patient's pain is better controlled today with increase in the oral medication. Currently has no headaches, lightheadedness, chest pain or shortness of breath. Objective - Vital Signs Vital signs: Vital Signs Temp 98.1 F 04/02/21 05:00 Pulse 77 04/02/21 05:00 Resp 16 04/02/21 05:00 BP 131/73 04/02/21 05:00 Pulse Ox 91 L 04/02/21 05:00 Intake & Output 04/01/21 04/02/21 04/02/21 18:59 06:59 18:59 Intake Total 590 Output Total 200 Balance 390 Intake: Oral 590 Output: Urine 200 Other: Voiding Method Toilet Toilet Urinal Urinal # Voids 2 4 - Exam Right upper extremity: Incision is clean, dry and intact. Mild soft tissue swelling present throughout the extremity with ecchymosis. Shoulder motion was not assessed, flexion and extension are intact at the elbow, hand/wrist. Sensation to light touch is intact throughout the extremity. Radial and ulnar pulses are 2+. - Labs CBC & Chem 7: 04/01/21 05:50 Assessment and Plan Assessment: Postoperative day #2 status post reverse right total shoulder arthroplasty Plan: Pain control, plan for discharge on [place] 7.5 mg/325 mg GI and DVT prophylaxis, aspirin 325 mg daily, this will utilize to discharge for 2 weeks Wound care instructions were discussed, this including icing and elevating along with showering Activity lower extremity was discussed, this including use of the arm sling Internal medicine recommendations Discharge planning: Discharge to home today Time with Patient: Less than 30
--- NOTE | 2021-04-02 09:16 | P.DS ---
Providers Date of admission: 03/31/2021 Expected date of discharge: 04/02/21 Attending physician: Riki Wright Primary care physician: [place]-L[facility] Hospital Course: Date of admission: 03/31/2021 Date of discharge: 04/02/2021 Admission diagnosis: Status post reverse right total shoulder arthroplasty Discharge diagnosis: Same Attending physician: Dr. Wright Surgical procedures: Reverse right total shoulder arthroplasty Brief history: Patient is a 80-year-old male with a history of progressive primary right shoulder osteoarthritis with rotator cuff arthropathy. At this point patient has failed conservative treatment measures and has opted to proceed with a elective reverse right total shoulder arthroplasty. Hospital course: Details of patient's surgery can be found in operative report. Patient tolerated the procedure well and was subsequently transported to orthopedic floor. Patient's orthopeidc and medical care was provided daily. Patient had daily laboratory tests performed for evaluation of overall blood counts. Patient had daily physical therapy to include strengthening range of motion as well as education with walker ambulation. Patient was treated with aspirin for their postoperative DVT prophylaxis during their inpatient stay. Patient was noted to have a relatively uneventful postoperative course. Patient reported satisfactory pain control with oral pain medications by postoperative day 1. Patient showed satisfactory progress with physical therapy. Patient moved steadily through the program and had no difficulty meeting the goals by postoperative day 2. Given patient's otherwise satisfactory course and having met physical therapy goals, plan is to discharge patient home on postoperative day 2. Discharge condition/disposition: Patient will be discharged home in stable condition. Discharge medications: Instructions are given on resumption of patient's normal daily medications per primary care recommendation, in addition patient will be prescribed for 7.5 mg/325 mg, aspirin 325 mg. Discharge instructions: 1. Wound care and infection precautions, keep incision dry and covered while showering, no lotions, creams, moisturizers. No soaking, tubs, pools, hottubs. Do not scrub over the incision. 2. Utilize arm sling 3. Ice and elevate when necessary. Do not exceed 20 minutes per hour with ice pack. 4. Utilize compression sleeve until seen at first follow up appointment. 5. Visiting nursing care. 6. Home physical therapy. 7. Pain meds and anticoagulants per prescription. 8. Pain medication has potential to cause constipation. Increase oral fluid and fiber intake. Contact primary care provider if you have not had a bowel movement within 48 hours after discharge 9. No anti-inflammatory medication until discussed at first post operative visit, this including Motrin, Aleve, Mobic, Diclofenac. 10. Follow up in office at 2 weeks postop with Tello Yu PA-C/Beto Hernandez 11. Follow up with your primary care doctor 7-10 days after discharge. 12. Contact [facility] with any questions, . Procedures: Reverse right total shoulder arthroplasty Patient Condition at Discharge: Good Plan - Discharge Summary Discharge Rx Participant: No New Discharge Prescriptions: New Aspirin 325 mg PO DAILY #21 tab HYDROcodone/APAP 7.5-325MG [[place] 7.5] 1 each PO Q6HR PRN #28 tab PRN Reason: Pain No Action Tamsulosin [Flomax] 0.4 mg PO BID Glucosam/Harish-Msm1/C/Abhijeet/Bosw [Glucosamine-Chondroitin Tablet] 1 tab PO DAILY Multivitamins, Thera [Multivitamin (formulary)] 1 tab PO DAILY Turmeric Root Extract [Turmeric] 500 mg PO DAILY Acetaminophen Tab [Tylenol] 1,000 mg PO DIRECTED PRN PRN Reason: Pain Escitalopram [Lexapro] 5 mg PO QAM Discharge Medication List Tamsulosin [Flomax] 0.4 mg PO BID 05/14/18 [History] Glucosam/Harish-Msm1/C/Abhijeet/Bosw [Glucosamine-Chondroitin Tablet] 1 tab PO DAILY 05/15/18 [History] Multivitamins, Thera [Multivitamin (formulary)] 1 tab PO DAILY 05/15/18 [History] Turmeric Root Extract [Turmeric] 500 mg PO DAILY 05/15/18 [History] Acetaminophen Tab [Tylenol] 1,000 mg PO DIRECTED PRN 11/26/19 [History] Escitalopram [Lexapro] 5 mg PO QAM 11/26/19 [History] Aspirin 325 mg PO DAILY #21 tab 04/02/21 [Rx] HYDROcodone/APAP 7.5-325MG [[place] 7.5] 1 each PO Q6HR PRN #28 tab 04/02/21 [Rx] Follow up Appointment(s)/Referral(s): Beto Starkey, PAC [PHYSICIAN COMMUNITY ASSISTANT] - 2 Weeks Activity/Diet/Wound Care/Special Instructions: Orthopedic discharge instructions: 1. Resume home medications after discharge 2. Pain medication as needed 3. Aspirin 325 mg daily for 2 weeks for DVT prophylaxis 4. Keep incision covered and dry while showering 5. Basic bandage over the incision 6. Utilize arm sling 7. Plan for follow-up at [facility] in 2 weeks, please contact office with any questions Discharge Disposition: HOME SELF-CARE
== END 2021-04-02 11:41 | disposition home or self-care (01) ==
LOC: OR 11:00 → 5NMEDONC 17:45 → OR 04-02 11:41
PROVIDERS: ATTEND Orthopaedic Surgery
DX: M12.812 Other specific arthropathies, not elsewhere classified, left shoulder (principal); N40.0 Benign prostatic hyperplasia without lower urinary tract symptoms; Z79.82 Long term (current) use of aspirin; Z88.5 Allergy status to narcotic agent; Z20.822 Contact with and (suspected) exposure to COVID-19
CPT/HCPCS: 23472; 64415; 76942; 88305; 85025; 88311; 87635; 73020; C1776; J2250; J1100; J2710; J0690 ×3; J2405; J2001; J3010; J2795; J2370; J0330; J2704; J1170

== ENCOUNTER 2022-12-03 09:43 | Day surgery (SDC) | payer MEDICARE ==
[2022-12-03] MEDS ORDERED: LACTATED RINGERS 1,000 ML IV SCH (10:13)
[2022-12-03] MEDS ORDERED: LIDOCAINE 1% (10MG/ML) FOR IV START INTRADERMA PRN (10:13)
[2022-12-03 10:32] VITALS: TEMP 97.2
[2022-12-03] MEDS ORDERED: PROPOFOL 10 MG/ML 20 ML VIAL IV ONE (11:10)
[2022-12-03] MEDS ORDERED: GLYCOPYRROLATE 0.2 MG/ML 2 ML VIAL ONE (11:10)
--- NOTE | 2022-12-03 11:28 | P.PCN ---
Date of Procedure: 12/03/22 Procedure(s) Performed: BRIEF HISTORY: Patient is a 82-year-old pleasant white male scheduled for an elective colonoscopy as a part of screening for colon cancer/history of colon polyps. PROCEDURE PERFORMED: Colonoscopy. PREOPERATIVE DIAGNOSIS: Screening for colon cancer and history of colon polyps. IV sedation per Anesthesia. PROCEDURE: After informed consent was obtained, the patient, was brought into the endoscopy unit. IV sedation was administered by Anesthesia under continuous monitoring. Digital rectal examination was normal. Initially the Olympus CF-160 flexible video colonoscope was then inserted in the rectum, gradually advanced into the cecum without any difficulty. Careful examination was performed as the scope was gradually being withdrawn. Ileocecal valve and the appendiceal orifice were visualized and appeared normal. Prep was excellent. Mucosa of the cecum, ascending colon, transverse colon, descending colon, sigmoid colon, and rectum appeared normal. Scattered sigmoid diverticulosis Retroflexion was performed in the rectum and no lesions were seen. The patient tolerated the procedure well. IMPRESSION: Normal-appearing colon from rectum to cecum with no evidence of colorectal neoplasia Scattered sigmoid diverticulosis. . RECOMMENDATIONS: Findings of this examination were discussed with the patient as well as his family. He was advised to be a high-fiber diet and take fiber supplements on a regular basis..
[2022-12-03 11:51] VITALS: BP 120/64; PULSE 66; RESP 18
== END 2022-12-03 12:07 | disposition home or self-care (01) ==
LOC: ORWHC2ENDO 09:43
PROVIDERS: ATTEND Internal Medicine Gastroenterology
DX: Z12.11 Encounter for screening for malignant neoplasm of colon (principal); K57.30 Diverticulosis of large intestine without perforation or abscess without bleeding; Z86.010 Personal history of colon polyps; Z79.899 Other long term (current) drug therapy
CPT/HCPCS: 45378; J2704